=== PATIENT | male | born 1965 | race African-American/Black ===

== ENCOUNTER 2017-05-25 10:47 | Emergency (ER) | payer MEDICARE, BC ==
[~2017-05-25] VITALS: Ht 182.9 cm; Wt 99.8 kg
[~2017-05-25 10:47] MED LIST: AMLO5TAB2 PO; MYCO360T PO; TACR1CAP4 PO
[2017-05-25 11:04] VITALS: BP 144/97
--- NOTE | 2017-05-25 11:34 | PHYS DOC ---
Past Medical History Past Medical History: Hypertension, Renal Failure, Other Additional Past Medical Histor: Kidney transplant Past Surgical History: Other Additional Past Surgical Histo: Kidney transplant,Dialysis shunt (left forearm) Alcohol Use: Occasionally Drug Use: None Adult General Chief Complaint Chief Complaint: BACK PAIN OR INJURY [facility] HPI Patient is a 52 year old male presents to the emergency department stating that he has having lower back pain and discomfort. He states on Wednesday evening he was leaning over a car to inspect the engine work that someone had done for him when he went to stand up he started having severe pain and discomfort. Denies any loss of bowel or bladder. He denies any numbness or tingling down to his lower extremities. Patient also states that he's been having left knee pain and discomfort for the last week. He states that he had to climb up on a ladder to check the damage on any trauma when he came down the ladder he developed lateral knee pain. He denies any numbness or tingling down to his lower extremity. He is able to ambulate. Patient does state that he is a recipient of a kidney transplant and cannot take nonsteroidal anti- inflammatories. Patient states that he has not taken anything for pain or discomfort for his back or his knee. Review of Systems Review of Systems Constitutional: Denies fever or chills [] Eyes: Denies change in visual acuity, redness, or eye pain [] HENT: Denies nasal congestion or sore throat [] Respiratory: Denies cough or shortness of breath [] Cardiovascular: No additional information not addressed in HPI [] GI: Denies abdominal pain, nausea, vomiting, bloody stools or diarrhea [] : Denies dysuria or hematuria [] Musculoskeletal: Complaining of lower back pain, left knee pain and discomfort Integument: Denies rash or skin lesions [] Neurologic: Denies headache, focal weakness or sensory changes [] Endocrine: Denies polyuria or polydipsia [] Allergies Allergies Allergies Coded Allergies Type Severity Reaction Last Updated Verified No Known Drug Allergies 01/11/14 No Physical Exam Physical Exam Constitutional: Well developed, well nourished, no acute distress, non-toxic appearance. [] HENT: Normocephalic, atraumatic, bilateral external ears normal, oropharynx moist, no oral exudates, nose normal. [] Eyes: PERRLA, EOMI, conjunctiva normal, no discharge. [] Neck: Normal range of motion, no tenderness, supple, no stridor. [] Cardiovascular:Heart rate regular rhythm Lungs & Thorax: No respiratory distress noted Skin: Warm, dry, no erythema, no rash. [] Back: No tenderness Extremities: Lateral left knee tenderness, no cyanosis, no clubbing, ROM intact , no edema. No bruising or discoloration noted. Negative Marty, negative valgus, negative Garcia. Peripheral pulses 2+ cap refill brisk less than 2 seconds. Neurologic: Alert and oriented X 3, normal motor function, normal sensory function, no focal deficits noted. [] Psychologic: Affect normal, judgement normal, mood normal. [] Current Patient Data Vital Signs Vital Signs Date Time Temp Pulse Resp B/P (MAP) Pulse Ox O2 Delivery O2 Flow Rate FiO2 05/25/17 11:04 98.1 88 20 97 Room Air 98.1 EKG EKG [] Radiology/Procedures Radiology/Procedures [][facility] [address] [place], [place] [id number] IMAGING REPORT Signed PATIENT: EULALIO STOVER ACCOUNT: [id number] : 1965 LOCATION: ER AGE: 52 SEX: M EXAM STATUS: REG ER ORD. PHYSICIAN: CHRISTIANO HAMMOND APRN REASON: pain and discomfort to the anterior and lateral knee PROCEDURE: KNEE LEFT 4V INDICATION: pain and discomfort to the anterior and lateral knee COMPARISON: None. IMPRESSION: Left knee: 4 views obtained without evidence of dislocation. On the lateral view there is a possible lucency seen at one of the femoral condyles anteriorly. Cannot exclude a small osteochondral defect. Mild degenerative changes. DICTATED and SIGNED BY: EVERTON COULTER MD DATE: 05/25/17 1250 CC: CHRISTIANO HAMMOND APRN; NO PCP; NON,STAFF ~ Course & Med Decision Making Course & Med Decision Making Pertinent Labs and Imaging studies reviewed. (See chart for details) Patient's x-ray cannot exclude a small osteochondral defect, left knee. Patient will be discharged home with recommendations to use prednisone and Flexeril for pain and discomfort in his lower back area. Patient will be encouraged to follow -up with orthopedic in regards to the knee pain and discomfort. Patient was also instructed Flexeril will cause drowsiness do not take any be alert and oriented. Patient was encouraged to use ice packs on 20 minutes off 20 minutes several times today. Patient will be discharged home in stable condition signs symptoms to return back to emergency department has been provided. [] Dragon Disclaimer Dragon Disclaimer This electronic medical record was generated, in whole or in part, using a voice recognition dictation system. Departure Departure Impression: Primary Impression: Back pain Additional Impression: Left knee pain Disposition: HOME, SELF-CARE Condition: STABLE Referrals: NO PCP (PCP) KYLE RUFFIN MD Patient Instructions: Back Pain, Adult, Knee Pain, [id number] Additional Instructions: Your x-rays identified a possible small osteochondral defect. Medications as prescribed. Flexeril will cause drowsiness do not take any be alert and oriented. Ice packs on 20 minutes off 20 minutes several times a day. Follow-up with orthopedic within the next week. Return back to the emergency department for signs and symptoms of become worse. Scripts Prednisone (PREDNISONE) 20 Mg Tablet 40 MG PO DAILY, #14 TAB Prov: CHRISTIANO HAMMOND APRN 05/25/17 Cyclobenzaprine Hcl (CYCLOBENZAPRINE HCL) 10 Mg Tablet 10 MG PO TID, #30 TAB Prov: CHRISTIANO HAMMOND APRN 05/25/17 Problem Qualifiers CHRISTIANO HAMMOND APRN May 25, 2017 11:34
--- NOTE | 2017-05-25 12:55 | RAD ---
INDICATION: pain and discomfort to the anterior and lateral knee COMPARISON: None. IMPRESSION: Left knee: 4 views obtained without evidence of dislocation. On the lateral view there is a possible lucency seen at one of the femoral condyles anteriorly. Cannot exclude a small osteochondral defect. Mild degenerative changes.
[2017-05-25] MEDS ORDERED: PRED20TA PO (13:02)
[2017-05-25] MEDS ORDERED: CYCL10TA2 PO (13:02)
== END 2017-05-25 13:08 | disposition home or self-care (01) ==
LOC: ER 10:47
DX: M54.5 Low back pain (principal); M25.562 Pain in left knee; I12.9 Hypertensive chronic kidney disease with stage 1 through stage 4 chronic kidney disease, or unspecified chronic kidney disease; N18.9 Chronic kidney disease, unspecified; Z94.0 Kidney transplant status; Z99.2 Dependence on renal dialysis
CPT/HCPCS: 73564; 99284

== ENCOUNTER 2017-08-11 07:41 | Emergency (ER) | payer MEDICARE, BC ==
[~2017-08-11] VITALS: Ht 185.4 cm; Wt 97.1 kg
[~2017-08-11 07:41] MED LIST changes: +CYCL10TA2 PO; +PRED20TA PO
[2017-08-11] MEDS ORDERED: AMOX1TAB61 PO (08:03)
--- NOTE | 2017-08-11 08:03 | PHYS DOC ---
Past Medical History Past Medical History: Hypertension, Renal Failure, Other Additional Past Medical Histor: Kidney transplant Past Surgical History: Other Additional Past Surgical Histo: Kidney transplant,Dialysis shunt (left forearm) Alcohol Use: Occasionally Drug Use: None Adult General Chief Complaint Chief Complaint: FACE PROBLEM HPI HPI Patient is a 52 year old male with a history of a kidney transplant on prograph who presents to the ED complaining of left ear pain x 3 days. States he noticed some lymph node swelling also. History of ear problems and wants to get it taken care of before his flight in a few days. Associated symptoms include sore throat. Denies diffuse lymph node swelling, weight loss, fever, chest pain, shortness of breath, headache, vision changes or body aches. Followed by Dr. Jose. Review of Systems Review of Systems Constitutional: Denies fever or chills [] Eyes: Denies change in visual acuity, redness, or eye pain [] HENT: Complains of ear pain. Denies nasal congestion or sore throat [] Respiratory: Denies cough or shortness of breath [] Cardiovascular: No additional information not addressed in HPI [] GI: Denies abdominal pain, nausea, vomiting, bloody stools or diarrhea [] : Denies dysuria or hematuria [] Musculoskeletal: Denies back pain or joint pain [] Integument: Denies rash or skin lesions [] Neurologic: Denies headache, focal weakness or sensory changes [] Endocrine: Denies polyuria or polydipsia [] Allergies Allergies Allergies Coded Allergies Type Severity Reaction Last Updated Verified No Known Drug Allergies 01/11/14 No Physical Exam Physical Exam Constitutional: Well developed, well nourished, no acute distress, non-toxic appearance. [] HENT: Normocephalic, atraumatic, bilateral external ears normal, MILD LEFT TM ERYTHEMA. LOCAL LYMPH NODE SWELLING. oropharynx moist, no oral exudates, nose normal. [] Eyes: PERRLA, EOMI, conjunctiva normal, no discharge. [] Neck: Normal range of motion, no tenderness, supple, no stridor. [] Cardiovascular:Heart rate regular rhythm, no murmur [] Lungs & Thorax: Bilateral breath sounds clear to auscultation [] Abdomen: Bowel sounds normal, soft, no tenderness, no masses, no pulsatile masses. [] Skin: Warm, dry, no erythema, no rash. [] Back: No tenderness, no CVA tenderness. [] Extremities: No tenderness, no cyanosis, no clubbing, ROM intact, no edema. [] Neurologic: Alert and oriented X 3, normal motor function, normal sensory function, no focal deficits noted. [] Psychologic: Affect normal, judgement normal, mood normal. [] Current Patient Data Vital Signs Vital Signs Date Time Temp Pulse Resp B/P (MAP) Pulse Ox O2 Delivery O2 Flow Rate FiO2 08/11/17 08:06 97.6 79 18 98 Room Air 97.6 EKG EKG [] Radiology/Procedures Radiology/Procedures [] Course & Med Decision Making Course & Med Decision Making Pertinent Labs and Imaging studies reviewed. (See chart for details) []Will treat for infection with Augmentin. Discussed symptomatic treatment at home. Discussed follow-up with ENT if symptoms do not resolve in 7-10 days. Discussed reasons to return to the ED. Patient understands and agrees with plan. Dragon Disclaimer Dragon Disclaimer This electronic medical record was generated, in whole or in part, using a voice recognition dictation system. Departure Departure Impression: Primary Impression: Otitis media Disposition: HOME, SELF-CARE Condition: STABLE Referrals: NO PCP (PCP) LANCE JOSE MD Patient Instructions: Otitis Media, Adult Scripts Amoxicillin/Potassium Clav (AUGMENTIN 875-125 TABLET) 1 Each Tablet 1 TAB PO BID, #20 TAB Prov: LISA WILDE 08/11/17 LISA WILDE Aug 11, 2017 08:03
[2017-08-11 08:06] VITALS: BP 156/95
== END 2017-08-11 08:18 | disposition home or self-care (01) ==
LOC: ER 07:41
DX: H66.92 Otitis media, unspecified, left ear (principal); I12.9 Hypertensive chronic kidney disease with stage 1 through stage 4 chronic kidney disease, or unspecified chronic kidney disease; N18.9 Chronic kidney disease, unspecified; Z94.0 Kidney transplant status; Z99.2 Dependence on renal dialysis
CPT/HCPCS: 99283

== ENCOUNTER → 2018-03-11 | Outpatient (CLI) | payer OTHER, MEDICARE, BC | END | disposition home or self-care (01) | LOC: RAD 09:20 | DX: M43.17 Spondylolisthesis, lumbosacral region (principal); G89.29 Other chronic pain; I12.9 Hypertensive chronic kidney disease with stage 1 through stage 4 chronic kidney disease, or unspecified chronic kidney disease; N18.9 Chronic kidney disease, unspecified | CPT/HCPCS: 72100 ==

== ENCOUNTER 2018-09-23 09:41 | Emergency (ER) | payer MEDICARE, BC ==
[~2018-09-23] VITALS: Ht 182.9 cm; Wt 97.5 kg
[~2018-09-23 09:41] MED LIST changes: -AMLO5TAB2 PO; +AMLO5TAB7 PO; +AMOX1TAB61 PO; +CEPH-264 PO; +HYDR-2758 PO; +LINE600T PO; +MYCO180T PO
[2018-09-23 10:10] VITALS: BP 154/98
--- NOTE | 2018-09-23 10:25 | PHYS DOC ---
Past Medical History Past Medical History: Hypertension, Renal Disease Additional Past Medical Histor: esrd, Past Surgical History: Other Additional Past Surgical Histo: KIDNEY TRANSPLANT Alcohol Use: None Drug Use: None Adult General Chief Complaint Chief Complaint: RIB PAIN HPI HPI Patient is a 53 year old -British male who presents to the emergency room with complaints of lower left anterior rib pain for the last 5 days. He states that he coughed or sneezed last Wednesday and felt a sharp pain in his left anterior ribs. He denies any shortness of breath, chest pain, palpitations, injury, fever, nausea, or vomiting. Patient states that he has had a mild productive cough with clear to white sputum for about the last week. He denies having any fevers. States that he had a kidney transplant 8 years ago and denies any dysuria, hematuria, or decreased urination. Review of Systems Review of Systems Constitutional: Denies fever or chills [] HENT: Denies nasal congestion or sore throat [] Respiratory: History of present illness Cardiovascular: No additional information not addressed in HPI [] GI: Denies abdominal pain, nausea, vomiting, or diarrhea [] : Denies dysuria or hematuria [] Musculoskeletal: Denies back pain or joint pain [] Neurologic: Denies headache, focal weakness or sensory changes [] All other systems were reviewed and found to be within normal limits, except as documented in this note. Allergies Allergies Allergies Coded Allergies Type Severity Reaction Last Updated Verified No Known Drug Allergies 01/11/14 No Physical Exam Physical Exam Constitutional: Well developed, well nourished, no acute distress, non-toxic appearance. [] HENT: Normocephalic, atraumatic, bilateral external ears normal, nose normal. [ ] Eyes: PERRLA, conjunctiva normal, no discharge. [] Cardiovascular:Heart rate regular rhythm, no murmur [] Lungs & Thorax: Bilateral breath sounds clear to auscultation; lower left anterior rib tenderness to palpation no crepitus or deformity[] Skin: Warm, dry, no erythema, no rash. [] Extremities: No cyanosis, no clubbing, ROM intact, no edema. [] Neurologic: Alert and oriented X 3, normal motor function, normal sensory function, no focal deficits noted. [] Psychologic: Affect normal, judgement normal, mood normal. [] Current Patient Data Vital Signs Vital Signs Date Time Temp Pulse Resp B/P (MAP) Pulse Ox O2 Delivery O2 Flow Rate FiO2 09/23/18 10:10 98.2 89 16 154/98 (116) 98 Room Air 98.2 EKG EKG [] Radiology/Procedures Radiology/Procedures X-ray negative for acute fx or findings read by Dr. Perez[] Course & Med Decision Making Course & Med Decision Making Pertinent Labs and Imaging studies reviewed. (See chart for details) Dx: R rib pain/strain prescription for hydrocodone. Follow up with PCP next week if sx persist, return to the ER if sx worsen. Use a pillow to splint the area when coughing and sneezing. [] Dragon Disclaimer Dragon Disclaimer This electronic medical record was generated, in whole or in part, using a voice recognition dictation system. Departure Departure Impression: Primary Impression: Rib pain on right side Additional Impression: Contusion of rib on right side Disposition: HOME, SELF-CARE Condition: STABLE Referrals: NO PCP (PCP) Patient Instructions: Rib Contusion Additional Instructions: Use a pillow to splint the area when coughing and sneezing. Prescription and use as directed. Follow-up with your primary care doctor next week if your symptoms persist. Return to the emergency room if her symptoms worsen. Scripts Hydrocodone Bit/Acetaminophen (HYDROCODONE-APAP 5-325 ) 1 Each Tablet 1 TAB PO PRN Q6HRS PRN for PAIN for 3 Days, #12 TAB 0 Refills Prov: MOE ALMONTE [employer] MANAGER 09/23/18 Problem Qualifiers Additional Impression: Contusion of rib on right side Encounter type: initial encounter Qualified Codes: S20.211A - Contusion of right front wall of thorax, initial encounter MOE ALMONTE [employer] MANAGER Sep 23, 2018 10:25
[2018-09-23] MEDS ORDERED: HYDR-2758 PO (11:24)
--- NOTE | 2018-09-23 12:01 | RAD ---
Exam:Left ribs with PA chest Date: 09/23/2018 10:33 AM Comparison: No prior Indication: COUGH X 1 WEEK, LT ANTERIOR/LATERAL RIB PAIN X 3 DAYS, WORSE WITH COUGH, SNEEZING Findings/ Impression: The heart is not enlarged. Mediastinal and hilar contours are normal. No focal parenchymal airspace opacity. No pleural effusion or pneumothorax. AP, Oblique and Spot images of the left ribs are negative for acute displaced rib fracture. Negative focal pleural elevation. Symmetrical intercostal spacing. It is of note that an acute non-displaced rib fracture can be in-apparent on initial post-trauma imaging. Electronically signed by: Sinan Enamorado MD (09/23/2018 11:58 AM) [facility]
== END 2018-09-23 11:32 | disposition home or self-care (01) ==
LOC: ER 09:41
DX: S20.211A Contusion of right front wall of thorax, initial encounter (principal); I12.0 Hypertensive chronic kidney disease with stage 5 chronic kidney disease or end stage renal disease; N18.6 End stage renal disease; Z94.0 Kidney transplant status; X58.XXXA Exposure to other specified factors, initial encounter; Y93.89 Activity, other specified; Y92.89 Other specified places as the place of occurrence of the external cause; Y99.8 Other external cause status
CPT/HCPCS: 71101; 99284

== ENCOUNTER 2019-12-18 21:25 | Emergency (ER) | payer MEDICARE, BC ==
[~2019-12-18 21:25] MED LIST changes: +AMLO5TAB10 PO; -AMLO5TAB7 PO; -HYDR-2758 PO; +HYDR-2761 PO; -LINE600T PO; +LINE600T12 PO
== END 2019-12-18 22:38 | disposition left against medical advice (07) ==
LOC: ER 21:25
DX: R05 Cough (principal); R09.81 Nasal congestion; Z53.21 Procedure and treatment not carried out due to patient leaving prior to being seen by health care provider

== ENCOUNTER 2020-12-10 11:31 | Inpatient (IN) | payer MEDICARE, BC ==
[~2020-12-10] VITALS: Ht 182.9 cm; Wt 97.9 kg
[~2020-12-10 11:31] MED LIST changes: +AMLO-186 PO; -AMLO5TAB10 PO; +AMOX1TAB10 PO; -TACR1CAP4 PO; +TACR1CAP5 PO
[2020-12-10] MEDS ORDERED: methylPREDNISolone SOD SUCC PF 125 MG/2 ML VIAL. IV ONE (12:15)
--- NOTE | 2020-12-10 12:22 | PHYS DOC ---
Past Medical History Past Medical History: Hypertension, Renal Disease Additional Past Medical Histor: esrd, Past Surgical History: Other Additional Past Surgical Histo: KIDNEY TRANSPLANT Smoking Status: Never Smoker Alcohol Use: None Drug Use: None General Adult EDM: Chief Complaint: SHORTNESS OF BREATH HPI: HPI: Patient is a 55 year old male who presents with shortness of air and fatigue that is lasted for the last 2 to 3 weeks. On October 16 2019 he was diagnosed with pneumonia but he was Covid negative. The CT of his chest also showed pulmonary congestion and groundglass opacities. Patient states he can just be sitting there and be short of breath. Nothing makes it worse or better. States he is a generalized fatigue but the last couple days he has been forcing some food down them and states he is feeling little bit better. Patient denies syncope, dizziness, headache, chest pain, numbness or tingling, focal weakness, abdominal pain, nausea, vomiting, diarrhea, fever. He does have a history of CHF, hypertension, end-stage renal disease, kidney transplant. Review of Systems: Review of Systems: Constitutional: Denies fever or chills. [] Eyes: Denies change in visual acuity. [] HENT: Denies nasal congestion or sore throat. [] Respiratory: Denies cough. +shortness of breath. [] Cardiovascular: Denies chest pain or edema. [] GI: Denies abdominal pain, nausea, vomiting, bloody stools or diarrhea. +Lack of appetite [] : Denies dysuria. [] Musculoskeletal: Denies back pain or joint pain. +Generalized fatigue [] Integument: Denies rash. [] Neurologic: Denies headache, focal weakness or sensory changes. [] Endocrine: Denies polyuria or polydipsia. [] Lymphatic: Denies swollen glands. [] Psychiatric: Denies depression or anxiety. [] Heart Score: Risk Factors: Risk Factors: DM, Current or recent (<one month) smoker, HTN, HLP, family history of CAD, obesity. Risk Scores: Score 0 - 3: 2.5% MACE over next 6 weeks - Discharge Home Score 4 - 6: 20.3% MACE over next 6 weeks - Admit for Clinical Observation Score 7 - 10: 72.7% MACE over next 6 weeks - Early Invasive Strategies Current Medications: Current Medications Medications (Trade) Dose Ordered Sig/Manjinder Start Time Stop Time Status Last Admin Dose Admin Methylprednisolone Sodium Succinate (SOLU-Medrol 125MG VIAL) 125 mg 1X ONCE 12/10/20 12:15 12/10/20 12:16 Allergies: Allergies: Allergies Coded Allergies Type Severity Reaction Last Updated Verified No Known Drug Allergies 01/11/14 No Physical Exam: PE: Constitutional: Well developed, well nourished, no acute distress, non-toxic appearance. [] HENT: Normocephalic, atraumatic, bilateral external ears normal, oropharynx moist, no oral exudates, nose normal. [] Eyes: PERRLA, EOMI, conjunctiva normal, no discharge. [] Neck: Normal range of motion, no tenderness, supple, no stridor. [] Cardiovascular:Heart rate regular rhythm, no murmur [] Lungs & Thorax: Bilateral upper breath sounds clear and lower diminished to auscultation [] Abdomen: Bowel sounds normal, soft, no tenderness, no masses, no pulsatile masses. [] Skin: Warm, dry, no erythema, no rash. [] Back: No tenderness, no CVA tenderness. [] Extremities: No tenderness, no cyanosis, no clubbing, ROM intact, no edema. [] Neurologic: Alert and oriented X 3, normal motor function, normal sensory function, no focal deficits noted. [] Psychologic: Affect normal, judgement normal, mood normal. [] Current Patient Data: Vital Signs: Vital Signs Date Time Temp Pulse Resp B/P (MAP) Pulse Ox O2 Delivery O2 Flow Rate FiO2 12/10/20 12:00 98.1 92 25 133/85 (101) 98 Room Air 98.1 EKG: EK and read by Dr Perez as Sinus Rhythm with LVH[] Radiology/Procedures: Radiology/Procedures: [] Impression: [facility] [address] [place] [address] IMAGING REPORT Signed PATIENT: EULALIO STOVER MACCOUNT: [id number] : 1965 LOCATION: ER AGE: 55 SEX: M EXAM STATUS: REG ER ORD. PHYSICIAN: CHRISTIANO LIMON APRN REASON: SHORTNESS OF BREATH, PATIENT STATES HE HAD PNEUMONIA IN OCTOBER PROCEDURE: PORTABLE CHEST 1V XR CHEST 1V INDICATION: Reason: SHORTNESS OF BREATH, PATIENT STATES HE HAD PNEUMONIA IN OCTOBER / Spl. Instructions: / History: . COMPARISON STUDY: None. FINDINGS: Lungs: Normal lung volume. Mild bilateral perihilar opacities. The tracheobronchial tree and hilar structures are normal. Pleura: No pleural effusion or pneumothorax. Heart and Mediastinum: Cardiomegaly. The great vessels of the thorax are normal. IMPRESSION: Mild bilateral perihilar opacities, possibly edema or infection. Electronically signed by: Nohelia Collins MD (12/10/2020 1:07 PM) [facility] DICTATED and SIGNED BY: NOHELIA COLLINS MD DATE: 12/10/20 [id number] [id number] IMAGING REPORT Signed PATIENT: JOLANTAEULALIO MACCOUNT: [id number] : 1965 LOCATION: ER AGE: 55 SEX: M EXAM STATUS: REG ER ORD. PHYSICIAN: CHRISTIANO LIMON APRN REASON: SHORTNESS OF BREATH CONTINUED PROCEDURE: PULMONARY PERFUSION IMG PARTIC Indication: Reason: SHORTNESS OF BREATH CONTINUED / Spl. Instructions: / History: Technique: Static images are obtained of both lungs following IV administration of 5.5 mCi of 99 M technetium MAA. Comparison: Chest x-ray from same day Findings: Patchy perfusion defects are seen. Can not assess whether this is matched or mismatched given the lack of ventilation images. Impression: 1. Mild patchy perfusion defects bilaterally. Cannot assess whether these are matched or mismatched secondary to lack of ventilation images however overall the exam is on the border between low and intermediate probability. Electronically signed by: Everton Coulter MD (12/10/2020 4:03 PM) [id number] DICTATED and SIGNED BY: EVERTON COULTER MD DATE: 12/10/20 [id number] [place], [place] [id number] IMAGING REPORT Signed PATIENT: EULALIO STOVER MACCOUNT: [id number] : 1965 LOCATION: ER AGE: 55 SEX: M EXAM STATUS: REG ER ORD. PHYSICIAN: CHRISTIANO LIMON APRN REASON: shortness of breath PROCEDURE: CT CHEST WO CONTRAST Exam: CT of chest without contrast INDICATION: Shortness of breath TECHNIQUE: Sequential axial images through the chest obtained without IV contrast. Sagittal and coronal reformatted images were reconstructed from the axial data and reviewed. Comparisons: Chest x-ray same day FINDINGS: Visualized portions of the thyroid are unremarkable. No enlarged mediastinal lymph nodes. Heart size is at the upper limits of normal. There is a small pericardial effusion. Thoracic aorta has a normal course and caliber. Pulmonary artery is not enlarged. Airways are patent. There is patchy areas of groundglass opacity noted in the lungs bilaterally. No consolidation or pneumothorax. No suspicious lung nodules are identified. There is a trace right pleural effusion. Visualized upper abdomen is unremarkable. No suspicious osseous lesions or acute fractures. IMPRESSION: 1. Extensive groundglass opacities noted lungs bilaterally favored to be infectious or inflammatory in etiology. 2. Trace right pleural effusion. Exposure: One or more of the following in the visualized dose reduction techniques were utilized for this examination: 1. Automated exposure control 2. Adjustment of the MA and/or KV according to patient size 3. Use of iterative of reconstructive technique Electronically signed by: Adelaida Gardiner MD (12/10/2020 4:11 PM) [facility] DICTATED and SIGNED BY: ADELAIDA GARDINER MD DATE: 12/10/20 [id number] Course & Med Decision Making: Course & Med Decision Making Pertinent Labs and Imaging studies reviewed. (See chart for details) COVID-19 CRITERIA: The patient was evaluated during the global COVID-19 pandemic, and that diagnosis was suspected/considered upon their initial presentation. Their evaluation, treatment and testing was consistent with current guidelines for patients who present with complaints or symptoms that may be related to COVID-19. See HPI. Alert and oriented x4. Speaks in full short sentences as he is sounding short of breath as he speaks. Lungs are clear in upper lobes with diminished in lower lobes. He is 97% on room air. Ambulatory with a steady gait. No extremity swelling. Skin pink warm and dry. Patient's troponin has gone back up since he left. Patient's echo cardiogram was never done prior to discharge. Patient's stated"since he did not have Covid that it was not of importance." Patient states he was then scheduled in November and then they called in November and rescheduled him for December. I have retested the patient for Covid. I have given him azithromycin. [] Dariel Disclaimer: Dragmandy Disclaimer: This electronic medical record was generated, in whole or in part, using a voice recognition dictation system. COVID-19 Patient Risks: Age 65 or older: No Sign of co-morbidity: Yes Exp to person + for COVID: No Exp to PUI: No Travel from affected area: No Lower respiratory symptoms: Yes Fever: No Other: No PPE Use: Full PPE with N95 mask or PAPR: Yes Departure Departure Impression: Primary Impression: Pneumonia Qualified Codes: J18.9 - Pneumonia, unspecified organism Additional Impression: Person under investigation for COVID-19 Disposition: 09 ADMITTED INPT THIS HOSP Admitting Physician: Megan Soria Condition: STABLE Referrals: MEGAN SORIA MD (PCP) CHRISTIANO LIMON APRN Dec 10, 2020 12:22
--- NOTE | 2020-12-10 12:34 | EKG ---
[facility] [address] [place] [address] Test Date: 2020-12-10 Test Time: 12:29:07 Pat Name: EULALIO STOVER Department: Room: Gender: Quality Process Engineer: : [id number] Requested By: CHRISTIANO LIMON Order Number: [id number] Reading MD: Donte Tovar Measurements Intervals Wood Rate: 88 P: 49 OK: 188 QRS: -39 QRSD: 100 T: 104 QT: 364 QTc: 444 Interpretive Statements SINUS RHYTHM LEFT ATRIAL ABNORMALITY ABNORMAL LEFT AXIS DEVIATION LEFT ANTERIOR FASCICULAR BLOCK CONSIDER LEFT VENTRICULAR HYPERTROPHY T ABNORMALITY IN LATERAL LEADS ABNORMAL ECG Electronically Signed On 12-17-2020 10:13:22 TRIPE SCRAPER by Donte Tovar
[2020-12-10 12:47] LABS: BASO % 0 % (0-3); EOS # 0.4 x10^3/uL (0.0-0.7); EOS % 7 % (0-3); HEMOGLOBIN 11.9 g/dL (13.0-17.5); LYMPH # 1.2 x10^3/uL (1.0-4.8); LYMPH % 20 % (24-48); MEAN CORPUSCULAR HEMOGLOBIN 24 pg (25-35); MEAN CORPUSCULAR HGB CONC 32 g/dL (31-37); MEAN CORPUSCULAR VOLUME 76 fL (79-100); MONO # 0.5 x10^3/uL (0.0-1.1); MONO % 9 % (0-9); NEUT # 3.8 x10^3/uL (1.8-7.7); NEUT % 64 % (31-73); PLATELET COUNT 329 x10^3/uL (140-400); RED BLOOD COUNT 4.87 x10^6/uL (4.30-5.70); RED CELL DISTRIBUTION WIDTH 18.9 % (11.5-14.5); WHITE BLOOD COUNT 5.9 x10^3/uL (4.0-11.0)
--- NOTE | 2020-12-10 13:09 | RAD ---
XR CHEST 1V INDICATION: Reason: SHORTNESS OF BREATH, PATIENT STATES HE HAD PNEUMONIA IN OCTOBER / . Instructi ons: / History: . COMPARISON STUDY: None. FINDINGS: Lungs: Normal lung volume. Mild bilateral perihilar opacities. The tracheobronchial tree and hilar st ructures are normal. Pleura: No pleural effusion or pneumothorax. Heart and Mediastinum: Cardiomegaly. The great vessels of the thorax are normal. IMPRESSION: Mild bilateral perihilar opacities, possibly edema or infection. Electronically signed by: Tony Collins MD (12/10/2020 1:07 PM) [facility]
[2020-12-10 13:18] LABS: ALBUMIN 2.8 g/dL (3.4-5.0); ALBUMIN/GLOBULIN RATIO 0.6 (1.0-1.7); CREATININE 2.4 mg/dL (0.7-1.3); GFR 34.3; TOTAL BILIRUBIN 0.5 mg/dL (0.2-1.0); TOTAL PROTEIN 7.4 g/dL (6.4-8.2)
[2020-12-10 14:43] LABS: BASE EXCESS COOX -5 mmol/L (-3-3); HCO3 COOX 18 mmol/L (21-28); METHEMOGLOBIN 0.4 % (0.0-1.9); OXYHEMOGLOBIN 95.7 %; PCO2 COOX 27 mmHg (35-46); PO2 COOX 83 mmHg (75-108); SAT O2 COOX 97 % (92-99)
[2020-12-10 15:13] LABS: BILIRUBIN,URINE NEGATIVE (NEG); CLARITY,URINE CLEAR; COLOR,URINE YELLOW; NITRITE,URINE NEGATIVE (NEG); PH,URINE 5.5 (<5.0-8.0); PROTEIN,URINE >=300 mg/dL (NEG-TRACE); UROBILINOGEN,URINE 0.2 mg/dL (0.2 mg/dL)
[2020-12-10 15:23] LABS: BACTERIA,URINE FEW /HPF (0-FEW); WBC,URINE RARE /HPF (0-4)
[2020-12-10] MEDS ORDERED: AZITHRMYCN 500MG IVPB FOR OMNI 250 ML IV ONE (15:45)
[2020-12-10] MEDS ORDERED: IPRATRPIUM/ALBUTEROL 0.5/2.5MG 3 ML NEBU. NEB SCH (16:00)
--- NOTE | 2020-12-10 16:05 | RAD ---
Indication: Reason: SHORTNESS OF BREATH CONTINUED / Spl. Instructions: / History: Technique: Static images are obtained of both lungs following IV administration of 5.5 mCi of 99 M te chnetium MAA. Comparison: Chest x-ray from same day Findings: Patchy perfusion defects are seen. Can not assess whether this is matched or mismatched given the lack of ventilation images. Impression: 1. Mild patchy perfusion defects bilaterally. Cannot assess whether these are matched or mismatched s econdary to lack of ventilation images however overall the exam is on the border between low and inte rmediate probability. Electronically signed by: Jonathan Mcmanus MD (12/10/2020 4:03 PM) [id number]
--- NOTE | 2020-12-10 16:13 | RAD ---
Exam: CT of chest without contrast INDICATION: Shortness of breath TECHNIQUE: Sequential axial images through the chest obtained without IV contrast. Sagittal and coron al reformatted images were reconstructed from the axial data and reviewed. Comparisons: Chest x-ray same day FINDINGS: Visualized portions of the thyroid are unremarkable. No enlarged mediastinal lymph nodes. Heart size is at the upper limits of normal. There is a small pericardial effusion. Thoracic aorta cherry s a normal course and caliber. Pulmonary artery is not enlarged. Airways are patent. There is patchy areas of groundglass opacity noted in the lungs bilaterally. No c onsolidation or pneumothorax. No suspicious lung nodules are identified. There is a trace right pleural effusion. Visualized upper abdomen is unremarkable. No suspicious osseous lesions or acute fractures. IMPRESSION: 1. Extensive groundglass opacities noted lungs bilaterally favored to be infectious or inflammatory in etiology. 2. Trace right pleural effusion. Exposure: One or more of the following in the visualized dose reduction techniques were utilized for this examination: 1. Automated exposure control 2. Adjustment of the MA and/or KV according to patient size 3. Use of iterative of reconstructive technique Electronically signed by: Adelaida Kuhn MD (12/10/2020 4:11 PM) [facility]
[2020-12-10] MEDS: IPRATROPIUM/ALBUTEROL 20/100mcg/INH INHALER. INH SCH ×2 (18:00→20:00)
[2020-12-10 19:00] VITALS: BP 139/87
[2020-12-10 23:00] VITALS: BP 136/90
[2020-12-11 03:00] VITALS: BP 133/87
[2020-12-11] MEDS ORDERED: GUAI600T47 PO (04:49)
[2020-12-11 07:00] VITALS: BP 128/91
[2020-12-11] MEDS: IPRATROPIUM/ALBUTEROL 20/100mcg/INH INHALER. INH SCH ×4 (07:56→20:55)
--- NOTE | 2020-12-11 09:26 | PDOC ---
Provider Note Date of Service: DATE: 12/11/20 TIME: 09:25 Provider Note Pt seen .H&P dictated.#[id number]. Justifications for Admission Other Justification DANNY SORIA MD Dec 11, 2020 09:26
[2020-12-11] MEDS: ENOXAPARIN 40 MG/0.4 ML SYRINGE. SQ SCH (09:30)
--- NOTE | 2020-12-11 09:59 | HP ---
ADMIT DATE: 12/10/2020 LOCATION: [facility] REASON FOR ADMISSION TO THE HOSPITAL: Shortness of breath, infiltrates in the lung on CT scan. HISTORY OF PRESENT ILLNESS: The patient is a 55-year-old male with history of kidney transplant and he is on immunosuppressants. The patient was admitted to the hospital on 10/17 for shortness of breath, at the time, he had exposure to COVID and the patient had a CT chest, which shows infiltrates in the lung, COVID test was negative. At that time, the patient was seen by Pulmonary as well as Cardiology. His infiltrates in the lung improved with Lasix and it was felt that it maybe congestive heart failure. The patient was recommended to outpatient echocardiogram, but he did not have that done. In the meantime, he was still having lot of cough with shortness of breath. The patient came to the Emergency Room and his white count was normal, no fever but x-ray shows persistent infiltrates in the lung. V/Q scan was low probability for pulmonary embolism. The patient was admitted to the hospital for further investigation and treatment. Cardiology is consulted, pulmonary is consulted and the patient was given empirical treatment with Zithromax and also given Lovenox dose and Solu-Medrol. He has only clear sputum, only is short of breath, he is not up to usual self. PAST MEDICAL HISTORY: History of hypertension, kidney transplant. He was on dialysis in the past, but with the kidney transplant, he is on immunosuppressants. He has chronic kidney disease, creatinine 2.5. SURGICAL HISTORY: Kidney transplant. ALLERGIES: None. MEDICATIONS AT HOME: Amlodipine 10 mg daily, Myfortic 360 mg twice a day and 180 mg twice daily; Prograf 5 mg twice a day. PERSONAL HISTORY: Denies smoking, alcohol or drug abuse. SOCIAL HISTORY: Lives at home. FAMILY HISTORY: Hypertension, kidney problems. REVIEW OF SYMPTOMS: Complains of cough, feeling tired. Denies any fever or chills. Denies any yellow green sputum. Rest of the 14 systems was reviewed and negative. Denies any ankle swelling. PHYSICAL EXAMINATION: GENERAL: The patient is comfortable, sitting in chair, not in any distress. VITAL SIGNS: Temperature 98, pulse 88, respirations 30, blood pressure 131/85, 100% on room air. HEENT: Head is atraumatic. Pupils equal. Oral cavity: No congestion. NECK: Supple. Thyroid gland is not elevated. CHEST: Symmetrical. CARDIOVASCULAR: S1, S2. LUNGS: Clear to auscultation. No crackles. ABDOMEN: Soft, no mass palpable. EXTERNAL GENITALIA: No Ariza. RECTAL: Deferred. EXTREMITIES: No calf tenderness, no edema. The patient has an old AV graft in the left arm and the patient has a scar in the right lower abdomen from kidney transplant. NEUROLOGIC: No focal edema in the lower extremities. LABORATORY DATA: White count 6, hemoglobin 12, platelets 329. D-dimer 0.95, slightly elevated. Electrolytes show sodium 136, potassium 4.0, chloride 104, bicarbonate 23, BUN 28, creatinine 2.4, his baseline. Glucose 115, calcium 11. LFTs normal. Troponin negative 0.04. BNP 1900. Urine negative. Chest x-ray shows mild bilateral perihilar opacities and a CT chest, which shows, without contrast, extensive ground glass opacities bilaterally, trace right pleural effusion and V/Q scan is low probability for pulmonary embolism. FINAL IMPRESSION: 1. Persistent lung infiltrates possibility late effects of previous pneumonia. 2. Rule out heart failure. 3. Hypertension. 4. History of kidney transplant, on immunosuppressants. 5. History of dialysis with AV graft in the past. PLAN: At this time, the patient was admitted to the hospital, COVID test was pending and will have Pulmonary Critical Care see the patient, echocardiogram while he is in the hospital this time and also we will empirically treat with Zithromax, Solu-Medrol and Lovenox until cultures are available. DANNY SORIA MD DR: SILVIA/alicia JOB#: [id number] / [id number] AUGUSTO
[2020-12-11] MEDS ORDERED: MYCOPHENOLATE ACID 180 MG TABLET.DR. PO SCH (10:00)
[2020-12-11] MEDS: MYCOPHENOLATE ACID 180 MG TABLET.DR. PO SCH ×3 (10:02→21:05)
[2020-12-11] MEDS: methylPREDNISolone SOD SUCC PF 40 MG/ML VIAL. IV SCH ×2 (10:02→20:55)
[2020-12-11] MEDS: AZITHROMYCIN 250 MG in IV NORMAL SALINE 250ML 250 ML IV SCH (10:04)
[2020-12-11 11:00] VITALS: BP 131/93
[2020-12-11] MEDS: TACROLIMUS 0.5 MG CAPSULE. PO SCH ×2 (11:23→21:07)
--- NOTE | 2020-12-11 11:50 | PDOC ---
PULMONARY PROGRESS NOTES DATE: 12/11/20 TIME: 11:48 Vitals Vital Signs Date Time Temp Pulse Resp B/P (MAP) Pulse Ox O2 Delivery O2 Flow Rate FiO2 12/11/20 11:00 97.7 96 18 131/93 (106) 96 Room Air 97.7 General: Alert, Oriented X4 Lungs: Crackles Cardiovascular: S1, S2 Abdomen: Non-tender Extremities: No Edema Labs Laboratory Tests Test 12/10/20 12:33 12/10/20 12:34 12/10/20 14:30 12/10/20 15:07 Coronavirus (PCR) Not detected (Not Detected) White Blood Count 5.9 x10^3/uL (4.0-11.0) Red Blood Count 4.87 x10^6/uL (4.30-5.70) Hemoglobin 11.9 g/dL (13.0-17.5) Hematocrit 37.0 % (39.0-53.0) Mean Corpuscular Volume 76 fL (79-100) Mean Corpuscular Hemoglobin 24 pg (25-35) Mean Corpuscular Hemoglobin Concent 32 g/dL (31-37) Red Cell Distribution Width 18.9 % (11.5-14.5) Platelet Count 329 x10^3/uL (140-400) Neutrophils (%) (Auto) 64 % (31-73) Lymphocytes (%) (Auto) 20 % (24-48) Monocytes (%) (Auto) 9 % (0-9) Eosinophils (%) (Auto) 7 % (0-3) Basophils (%) (Auto) 0 % (0-3) Neutrophils # (Auto) 3.8 x10^3/uL (1.8-7.7) Lymphocytes # (Auto) 1.2 x10^3/uL (1.0-4.8) Monocytes # (Auto) 0.5 x10^3/uL (0.0-1.1) Eosinophils # (Auto) 0.4 x10^3/uL (0.0-0.7) Basophils # (Auto) 0.0 x10^3/uL (0.0-0.2) D-Dimer (Radha) 0.95 ug/mlFEU (0.00-0.50) Sodium Level 136 mmol/L (136-145) Potassium Level 4.0 mmol/L (3.5-5.1) Chloride Level 104 mmol/L (98-107) Carbon Dioxide Level 23 mmol/L (21-32) Anion Gap 9 (6-14) Blood Urea Nitrogen 28 mg/dL (8-26) Creatinine 2.4 mg/dL (0.7-1.3) Estimated GFR (Cockcroft-Gault) 34.3 BUN/Creatinine Ratio 12 (6-20) Glucose Level 115 mg/dL (70-99) Lactic Acid Level 0.8 mmol/L (0.4-2.0) Calcium Level 11.0 mg/dL (8.5-10.1) Total Bilirubin 0.5 mg/dL (0.2-1.0) Aspartate Amino Transf (AST/SGOT) 11 U/L (15-37) Alanine Aminotransferase (ALT/SGPT) 18 U/L (16-63) Alkaline Phosphatase 102 U/L (46-116) Troponin I Quantitative 0.040 ng/mL (0.000-0.055) RC-Bnq-V-Type Natriuretic Peptide 1909 pg/mL (0-124) Total Protein 7.4 g/dL (6.4-8.2) Albumin 2.8 g/dL (3.4-5.0) Albumin/Globulin Ratio 0.6 (1.0-1.7) O2 Saturation 97 % (92-99) Arterial Blood pH 7.44 (7.35-7.45) Arterial Blood pCO2 at Patient Temp 27 mmHg (35-46) Arterial Blood pO2 at Patient Temp 83 mmHg (75-108) Arterial Blood HCO3 18 mmol/L (21-28) Arterial Blood Base Excess -5 mmol/L (-3-3) Oxyhemoglobin 95.7 % Methemoglobin 0.4 % (0.0-1.9) Carbon Monoxide, Quantitative 0.5 % (0.0-1.9) FiO2 21 Urine Collection Type Unknown Urine Color Yellow Urine Clarity Clear Urine pH 5.5 (<5.0-8.0) Urine Specific Elmore 1.015 (1.000-1.030) Urine Protein >=300 mg/dL (NEG-TRACE) Urine Glucose (UA) Negative mg/dL (NEG) Urine Ketones (Stick) Negative mg/dL (NEG) Urine Blood Trace (NEG) Urine Nitrite Negative (NEG) Urine Bilirubin Negative (NEG) Urine Urobilinogen Dipstick 0.2 mg/dL (0.2 mg/dL) Urine Leukocyte Esterase Negative (NEG) Urine RBC 3-5 /HPF (0-2) Urine WBC Rare /HPF (0-4) Urine Squamous Epithelial Cells Occ /LPF Urine Bacteria Few /HPF (0-FEW) Laboratory Tests Test 12/10/20 12:33 12/10/20 12:34 12/10/20 14:30 12/10/20 15:07 Coronavirus (PCR) Not detected (Not Detected) White Blood Count 5.9 x10^3/uL (4.0-11.0) Red Blood Count 4.87 x10^6/uL (4.30-5.70) Hemoglobin 11.9 g/dL (13.0-17.5) Hematocrit 37.0 % (39.0-53.0) Mean Corpuscular Volume 76 fL (79-100) Mean Corpuscular Hemoglobin 24 pg (25-35) Mean Corpuscular Hemoglobin Concent 32 g/dL (31-37) Red Cell Distribution Width 18.9 % (11.5-14.5) Platelet Count 329 x10^3/uL (140-400) Neutrophils (%) (Auto) 64 % (31-73) Lymphocytes (%) (Auto) 20 % (24-48) Monocytes (%) (Auto) 9 % (0-9) Eosinophils (%) (Auto) 7 % (0-3) Basophils (%) (Auto) 0 % (0-3) Neutrophils # (Auto) 3.8 x10^3/uL (1.8-7.7) Lymphocytes # (Auto) 1.2 x10^3/uL (1.0-4.8) Monocytes # (Auto) 0.5 x10^3/uL (0.0-1.1) Eosinophils # (Auto) 0.4 x10^3/uL (0.0-0.7) Basophils # (Auto) 0.0 x10^3/uL (0.0-0.2) D-Dimer (Radha) 0.95 ug/mlFEU (0.00-0.50) Sodium Level 136 mmol/L (136-145) Potassium Level 4.0 mmol/L (3.5-5.1) Chloride Level 104 mmol/L (98-107) Carbon Dioxide Level 23 mmol/L (21-32) Anion Gap 9 (6-14) Blood Urea Nitrogen 28 mg/dL (8-26) Creatinine 2.4 mg/dL (0.7-1.3) Estimated GFR (Cockcroft-Gault) 34.3 BUN/Creatinine Ratio 12 (6-20) Glucose Level 115 mg/dL (70-99) Lactic Acid Level 0.8 mmol/L (0.4-2.0) Calcium Level 11.0 mg/dL (8.5-10.1) Total Bilirubin 0.5 mg/dL (0.2-1.0) Aspartate Amino Transf (AST/SGOT) 11 U/L (15-37) Alanine Aminotransferase (ALT/SGPT) 18 U/L (16-63) Alkaline Phosphatase 102 U/L (46-116) Troponin I Quantitative 0.040 ng/mL (0.000-0.055) AU-Nox-Y-Type Natriuretic Peptide 1909 pg/mL (0-124) Total Protein 7.4 g/dL (6.4-8.2) Albumin 2.8 g/dL (3.4-5.0) Albumin/Globulin Ratio 0.6 (1.0-1.7) O2 Saturation 97 % (92-99) Arterial Blood pH 7.44 (7.35-7.45) Arterial Blood pCO2 at Patient Temp 27 mmHg (35-46) Arterial Blood pO2 at Patient Temp 83 mmHg (75-108) Arterial Blood HCO3 18 mmol/L (21-28) Arterial Blood Base Excess -5 mmol/L (-3-3) Oxyhemoglobin 95.7 % Methemoglobin 0.4 % (0.0-1.9) Carbon Monoxide, Quantitative 0.5 % (0.0-1.9) FiO2 21 Urine Collection Type Unknown Urine Color Yellow Urine Clarity Clear Urine pH 5.5 (<5.0-8.0) Urine Specific Elmore 1.015 (1.000-1.030) Urine Protein >=300 mg/dL (NEG-TRACE) Urine Glucose (UA) Negative mg/dL (NEG) Urine Ketones (Stick) Negative mg/dL (NEG) Urine Blood Trace (NEG) Urine Nitrite Negative (NEG) Urine Bilirubin Negative (NEG) Urine Urobilinogen Dipstick 0.2 mg/dL (0.2 mg/dL) Urine Leukocyte Esterase Negative (NEG) Urine RBC 3-5 /HPF (0-2) Urine WBC Rare /HPF (0-4) Urine Squamous Epithelial Cells Occ /LPF Urine Bacteria Few /HPF (0-FEW) Medications Active Scripts Medications Dose Route/Sig Max Daily Dose Days Date Category Mucinex (Guaifenesin) 600 Mg Tablet.er 1 Tab PO BID 10 12/11/20 Reported Myfortic (Mycophenolate Sodium) 180 Mg Tablet.dr 180 Mg PO BID 07/26/18 Reported Prograf (Tacrolimus) 1 Mg Capsule 5 Mg PO BID 05/03/14 Reported Myfortic (Mycophenolate Sodium) 360 Mg Tablet.dr 360 Mg PO BID 05/03/14 Reported Amlodipine Besylate 5 Mg Tablet 10 Mg PO DAILY 01/11/14 Reported Impression . Full consult dictated CT chest reviewed, with radiologist. Differential diagnosis includes a hypersensitivity pneumonitis, alveolitis, possible infectious viral etiology. Doubt CHF. Patient gives a history of being exposed to ceramic dust, wood dust. His SARS Covid 2 is negative. Recommend treatment for hypersensitivity pneumonitis with steroids, empiric antibiotics, await echocardiogram. Possible home in 24 to 48 hours. ARELY SZYMANSKI MD Dec 11, 2020 11:50
[2020-12-11 12:26] LABS: PROTHROMBIN TIME PATIENT 14.9 SEC (11.7-14.0)
[2020-12-11 12:31] LABS: CALCIUM 11.4 mg/dL (8.5-10.1); CREATININE 2.7 mg/dL (0.7-1.3); GFR 29.9; MAGNESIUM 1.7 mg/dL (1.8-2.4); POTASSIUM 4.5 mmol/L (3.5-5.1)
--- NOTE | 2020-12-11 13:55 | CONS ---
DATE OF CONSULTATION: 12/11/2020 ATTENDING PHYSICIAN: Dr. James. HISTORY OF PRESENT ILLNESS: The patient is a 55-year-old -[place] male with a history of renal failure, status post kidney transplant. He is currently on immunosuppressive agents. He is on combination of tacrolimus and mycophenolate. The patient presented because over the last week or so he was having increasing difficulty with shortness of breath mainly with exertion, weakness, some wheezing, coughing up some sputum. Over the last 24 hours, he is improved but then he was having some increasing difficulty presented to the Emergency Room, he was admitted. He underwent a CT chest with no contrast as a result of his renal failure. There is extensive ground glass opacities bilaterally. These appear to be different than his previous scan of the chest. I was asked to see him in consultation. Upon further questioning, the patient denies fever, body aches. No loss of taste or smell. He has never smoked. He does not have any pets at home. No bird. He did admit to having worked on his house. He did have some sheetrocking, sanding down sheetrock. He has also worked around some wood with wood dust. PAST MEDICAL HISTORY: Renal failure secondary to hypertension, status post kidney transplant. He is on immunosuppressive agents. Otherwise, he has never smoked. No other significant history. PAST SURGICAL HISTORY: Status post kidney transplant. ALLERGIES: No known drug allergies. MEDICATIONS: List from home was reviewed. SOCIAL HISTORY: Never smoked. Lives with his girlfriend. FAMILY HISTORY: Hypertension. REVIEW OF SYSTEMS: As indicated in the history of present illness. Otherwise, a 10-point system was reviewed and negative. PHYSICAL EXAMINATION: VITAL SIGNS: Since admission, he has been afebrile. Vital signs are stable. O2 saturation was greater than 92%. He is currently on room air. NECK: Jugular venous distention was not elevated. LUNGS: Adequate flow with no wheezes, rales or rhonchi. CARDIOVASCULAR: Regular rate and rhythm with S1, S2; no S3. ABDOMEN: Soft, nontender. EXTREMITIES: No clubbing, cyanosis or edema. LABORATORY DATA: Labs on room air: His PaO2 was 83, pH was 7.4, PaCO2 was 27. Sodium was normal. He had a lymphocytopenia. D-dimer was elevated. Electrolytes were noted. Serology for SARS-COVID 2 was negative. V/Q scan reviewed, low probability, clinical suspicion for PE is low. IMPRESSION: 1. Abnormal CT chest revealing ground glass opacities throughout both lung aguilar. 2. QLQO-TRRGH-0 negative on 12/10/2020 also negative back on 10/17/2020. 3. Renal failure secondary to hypertension, status post kidney transplant. 4. Kidney transplant. 5. Acute nonspecific bronchitis. 6. Possible acute alveolitis from inhalation of wood dust and sheetrock dust. PLAN: 1. The patient is to undergo an echocardiogram today, we will await echo results. 2. DRTP-PHVFT-1 negative. 3. Empiric steroids. 4. We will empirically treat with antibiotics for possible bacterial pneumonia. 5. Continue DVT prophylaxis. 7. P.r.n. nebulized treatments. I do appreciate the privilege in sharing in the patient's care. ARELY SZYMANSKI MD DR: BUSHRA/alicia JOB#: [id number] / [id number]
[2020-12-11 15:00] VITALS: BP 122/89
[2020-12-11] MEDS ORDERED: MAGNESIUM SULFATE 2GM 50 ML IV ONE (15:45)
--- NOTE | 2020-12-11 15:57 | PDOC2 ---
AMITA BRANCH HEAD GOLF PROFESSIONAL 12/11/20 1557: CARDIAC CONSULT DATE OF CONSULT Date of Consult DATE: 12/11/20 TIME: 1300 REASON FOR CONSULT Reason for Consult: CHF? REFERRING PHYSICIAN Referring Physician: Erika SOURCE Source: Chart review, Patient HISTORY OF PRESENT ILLNESS HISTORY OF PRESENT ILLNESS This is a pleasant 55 yo male admitted for complains of coughing. Reports that he was treated for CHF in 10/2020 with suspected pneumonia. He did not have covid-19 at that time. Reports that in the last 7-10 days he has been having productive cough with brown sputum. Positive for orthopnea at some point. No fever or chills. He had some SOA at that time and also some leg swelling which has improved. Reports that in the last 2 days his SOA is resolved and still has mild productive sputum but with shite sputum. He actually lost about 10 pounds in the last 2 months. Denies any chest pain, palpitations. No anosmia, ageusia. Denies any frequent dizziness. PAST MEDICAL HISTORY Cardiovascular: HTN Pulmonary: Pneumonia CENTRAL NERVOUS SYSTEM: Other (No pertinent history) GI: No pertinent hx Heme/Onc: Anemia NOS, Other (chronic immunosuppression) Psych: No pertinent hx Musculoskeletal: Osteoarthritis Rheumatologic: No pertinent hx Infectious disease: No pertinent hx ENT: No pertinent hx Renal/: Chronic renal failure, Other (renal transplant) Endocrine: No pertinent hx Dermatology: No pertinent hx PAST SURGICAL HISTORY Past Surgical History: Other (renal transplant) FAMILY HISTORY Family History noncontributory to CV SOCIAL HISTORY Smoke: No ALCOHOL: none Drugs: None Lives: with Family CURRENT MEDICATIONS CURRENT MEDICATIONS Current Medications Medications (Trade) Dose Ordered Sig/Manjinder Route PRN Reason Start Time Stop Time Status Last Admin Dose Admin Azithromycin 250 ml @ 250 mls/hr 1X ONCE IV 12/10/20 15:45 12/10/20 16:44 DC 12/10/20 15:56 Enoxaparin Sodium (Lovenox 100mg Syringe) 100 mg 1X ONCE SQ 12/10/20 17:15 12/10/20 17:16 DC 12/10/20 17:25 Albuterol/ Ipratropium (Combivent Respimat 20-100 Mcg) 1 puff RTQID INH 12/10/20 18:00 12/11/20 12:10 Amlodipine Besylate (Norvasc) 10 mg DAILY PO 12/11/20 10:00 12/11/20 10:02 Guaifenesin (Mucinex) 600 mg BID PO 12/11/20 10:00 12/11/20 10:02 Mycophenolate Sodium (Myfortic) 540 mg BID PO 12/11/20 10:00 12/11/20 10:02 Tacrolimus (Prograf) 5 mg BID PO 12/11/20 10:00 12/11/20 11:23 Azithromycin 250 mg/Sodium Chloride 250 ml @ 250 mls/hr Q24H IV 12/11/20 10:00 12/11/20 10:04 Methylprednisolone Sodium Succinate (SOLU-Medrol 40MG VIAL) 40 mg Q12HR IV 12/11/20 10:00 12/11/20 10:02 ALLERGIES ALLERGIES: Coded Allergies: No Known Drug Allergies (Unverified , 01/11/14) PHYSICAL EXAM General: Alert, Oriented X3, Cooperative, No acute distress HEENT: Atraumatic, Mucous membr. moist/pink Lungs: Other (diminished bases) Heart: Regular rate (SR) Abdomen: Soft, No tenderness Extremities: No cyanosis, Other (1+ bilateral LE pitting edema) Skin: No breakdown, No significant lesion Neuro: Normal speech, Sensation intact Psych/Mental Status: Mental status NL, Mood NL MUSCULOSKELETAL: Osteoarthritic changes both hands VITALS/I&O VITALS/I&O: Vital Signs Date Time Temp Pulse Resp B/P (MAP) Pulse Ox O2 Delivery O2 Flow Rate FiO2 12/11/20 11:00 97.7 96 18 131/93 (106) 96 Room Air 97.7 I & O 12/10/20 12/10/20 12/11/20 15:00 23:00 07:00 Intake Total 800 ml Balance 800 ml LABS Lab: Laboratory Tests Test 12/11/20 11:54 Prothrombin Time 14.9 SEC (11.7-14.0) H Prothrombin Time INR 1.2 (0.8-1.1) H Sodium Level 134 mmol/L (136-145) L Potassium Level 4.5 mmol/L (3.5-5.1) Chloride Level 101 mmol/L (98-107) Carbon Dioxide Level 21 mmol/L (21-32) Anion Gap 12 (6-14) Blood Urea Nitrogen 40 mg/dL (8-26) H Creatinine 2.7 mg/dL (0.7-1.3) H Estimated GFR (Cockcroft-Gault) 29.9 Glucose Level 173 mg/dL (70-99) H Calcium Level 11.4 mg/dL (8.5-10.1) H Magnesium Level 1.7 mg/dL (1.8-2.4) L Thyroid Stimulating Hormone (TSH) 4.011 uIU/mL (0.358-3.74) H Laboratory Tests 12/11/20 11:54 ASSESSMENT/PLAN ASSESSMENT/PLAN 1. 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 Suspect cardiomyopathy 3. DAWN on CKD3-4: prerenal 4. Hx of renal transplant with chronic immunosuppression 5. HTN: controlled 6. DLP: LDL at 106 otherwise on goal 7. Metabolic syndrome Recommendations 1. Lasix x1.. TTE. Consult nephrology 2. Will decrease norvasc to allow room for BB 3. Baby ASA. Replace K and M as warranted. 4. Pending TTE will consider for ischemic workup in the form of stress test as an outpt given his persistent intermittent issues with dyspnea 5. Will obtain UDS DIAMOND HICKEY MD 12/11/20 2216: CARDIAC CONSULT ASSESSMENT/PLAN ASSESSMENT/PLAN Pt. seen and examined. Agree with above TRAUMA COUNSELLOR note. TTE with severe LV dysfunction. Needs diuresis and likely outpt ischemic eval and consider cath depending on stress testing as he is at high risk for BLESSING with aggressive approach. Thanks AMITA BRANCH APRN Dec 11, 2020 15:57 DIAMOND HICKEY MD Dec 11, 2020 22:16
[2020-12-11] MEDS: FUROSEMIDE 40 MG/4 ML VIAL. IVP SCH (16:14)
--- NOTE | 2020-12-11 16:32 | NUR ---
SW following for discharge planning. Spoke with RN and reviewed chart. COVID result negative. Pt on room air, cardiac diet, IV Azithromycin. SW following.
--- NOTE | 2020-12-11 16:56 | CARD ---
MR#: [id number] Date of Study: 12/11/2020 Ordering Physician: DANNY SORIA, Referring Physician: DANNY SORIA, Tech: Irasema Ryan KINSEY APPROVED REPORT EXAM: Two-dimensional and M-mode echocardiogram with Doppler and color Doppler. INDICATION Dyspnea 2D DIMENSIONS RVDd3.5 (2.9-3.5cm)Left Atrium(2D)5.0 (1.6-4.0cm) IVSd1.0 (0.7-1.1cm)Aortic Root(2D)3.2 (2.0-3.7cm) LVDd7.2 (3.9-5.9cm)LVOT Diameter2.1 (1.8-2.4cm) PWd1.0 (0.7-1.1cm)LVDs6.4 (2.5-4.0cm) FS (%) 11.9 %SV68.6 ml LVEF(%)25.0 (>50%) M-Mode DIMENSIONS LVDd7.79 (4.0-5.6cm)MV EPSS2.0 (<0.5cm) FS (%) 13 %LVDs6.80 (2.0-3.8cm) ESV(Teich)239.3 mlLVEF(%)26 (>50%) Aortic Valve AoV Peak Yoav.145.0cm/sAoV VTI24.4cm AO Peak GR.8.4mmHgLVOT Peak Yoav.118.1cm/s AO Mean GR.6mmHgAVA (VMAX)2.78cm2 ADAMA (VTI)2.90cm2 Tricuspid Valve TR P. [id number]/sRAP [id number] TR Peak Gr.[id number] Pulmonary Vein S1 Wygeessr67.1cm/sD2 Ebxprpak61.2cm/s LEFT VENTRICLE The Left Ventricle is severely dilated. There is normal left ventricular wall thickness. The Ejection Fraction is 20%. There is severe global hypokinesis of the left ventricle. Tissue Doppler imaging re veals severe left ventricular diastolic dysfunction. RIGHT VENTRICLE The right ventricle is normal size. The right ventricular systolic function is normal. ATRIA The left atrium is moderately dilated. The right atrium is moderately dilated. The interatrial septum is intact with no evidence for an atrial septal defect or patent foramen ovale as noted on 2-D or Do ppler imaging. AORTIC VALVE The aortic valve is calcified but opens well. Doppler and Color Flow revealed no significant aortic r egurgitation. There is no significant aortic valvular stenosis. MITRAL VALVE The mitral valve is calcified but opens well. Mitral annular calcification is mild. There is no evide nce of mitral valve prolapse. There is no mitral valve stenosis. Doppler and Color-flow revealed mild mitral regurgitation. TRICUSPID VALVE The tricuspid valve is normal in structure and function. Doppler and Color Flow revealed mild tricusp id regurgitation. There is moderate pulmonary hypertension. The PA pressure was estimated at 45 mmHg. There is no tricuspid valve stenosis. PULMONIC VALVE The pulmonary valve is normal in structure and function. Doppler and Color Flow revealed mild pulmoni c valvular regurgitation. There is no pulmonic valvular stenosis. GREAT VESSELS The aortic root is normal in size. The ascending aorta is normal in size. There is mild pulmonary art brandy dilatation. The IVC is dilated and collapses <50% with inspiration. PERICARDIAL EFFUSION There is a trace circumferential pericardial effusion. Critical Notification Physician Notified Date: 12/11/2020 Physician Name:ROSEY Barry Critical Value: Yes <Conclusion> The Left Ventricle is severely dilated. The Ejection Fraction is 20%. There is severe global hypokinesis of the left ventricle. Doppler and Color Flow revealed mild tricuspid regurgitation. There is moderate pulmonary hypertensio n. The PA pressure was estimated at 45 mmHg. The IVC is dilated and collapses <50% with inspiration. There is a trace circumferential pericardial effusion. Signed by : Reji Pires, Electronically Approved : 12/11/2020 16:56:00
[2020-12-11 19:00] VITALS: BP 138/89
[2020-12-11 23:57] VITALS: BP 143/99
[2020-12-12 02:50] LABS: BARBITURATES NEG (NEG); BENZODIAZEPINES NEG (NEG); CANNABINOIDS NEG (NEG); COCAINE POS (NEG); METHADONE NEG (NEG); OPIATES NEG (NEG); PHENCYCLIDINE NEG (NEG)
[2020-12-12 02:53] LABS: AMPHETAMINE/METHAMPHETAMINE NEG (NEG)
[2020-12-12 03:00] VITALS: BP 131/86
[2020-12-12 07:00] VITALS: BP 125/81
[2020-12-12] MEDS: FUROSEMIDE 40 MG/4 ML VIAL. IVP SCH (08:31)
[2020-12-12] MEDS: methylPREDNISolone SOD SUCC PF 40 MG/ML VIAL. IV SCH (08:32)
[2020-12-12] MEDS: ENOXAPARIN 40 MG/0.4 ML SYRINGE. SQ SCH (08:32)
[2020-12-12] MEDS: MYCOPHENOLATE ACID 180 MG TABLET.DR. PO SCH ×2 (08:34→21:00)
[2020-12-12] MEDS: IPRATROPIUM/ALBUTEROL 20/100mcg/INH INHALER. INH SCH ×4 (08:35→20:00)
[2020-12-12] MEDS: AZITHROMYCIN 250 MG in IV NORMAL SALINE 250ML 250 ML IV SCH (08:38)
--- NOTE | 2020-12-12 08:38 | PDOC ---
PULMONARY PROGRESS NOTES DATE: 12/12/20 TIME: 08:37 Vitals Vital Signs Date Time Temp Pulse Resp B/P (MAP) Pulse Ox O2 Delivery O2 Flow Rate FiO2 12/12/20 08:34 88 125/81 12/12/20 07:00 96.4 18 99 Room Air 96.4 General: Alert, Oriented X4 Lungs: Crackles Cardiovascular: S1, S2 Abdomen: Non-tender Extremities: No Edema Labs Laboratory Tests Test 12/10/20 12:33 12/10/20 12:34 12/10/20 14:30 12/10/20 15:07 Coronavirus (PCR) Not detected (Not Detected) White Blood Count 5.9 x10^3/uL (4.0-11.0) Red Blood Count 4.87 x10^6/uL (4.30-5.70) Hemoglobin 11.9 g/dL (13.0-17.5) Hematocrit 37.0 % (39.0-53.0) Mean Corpuscular Volume 76 fL (79-100) Mean Corpuscular Hemoglobin 24 pg (25-35) Mean Corpuscular Hemoglobin Concent 32 g/dL (31-37) Red Cell Distribution Width 18.9 % (11.5-14.5) Platelet Count 329 x10^3/uL (140-400) Neutrophils (%) (Auto) 64 % (31-73) Lymphocytes (%) (Auto) 20 % (24-48) Monocytes (%) (Auto) 9 % (0-9) Eosinophils (%) (Auto) 7 % (0-3) Basophils (%) (Auto) 0 % (0-3) Neutrophils # (Auto) 3.8 x10^3/uL (1.8-7.7) Lymphocytes # (Auto) 1.2 x10^3/uL (1.0-4.8) Monocytes # (Auto) 0.5 x10^3/uL (0.0-1.1) Eosinophils # (Auto) 0.4 x10^3/uL (0.0-0.7) Basophils # (Auto) 0.0 x10^3/uL (0.0-0.2) D-Dimer (Radha) 0.95 ug/mlFEU (0.00-0.50) Sodium Level 136 mmol/L (136-145) Potassium Level 4.0 mmol/L (3.5-5.1) Chloride Level 104 mmol/L (98-107) Carbon Dioxide Level 23 mmol/L (21-32) Anion Gap 9 (6-14) Blood Urea Nitrogen 28 mg/dL (8-26) Creatinine 2.4 mg/dL (0.7-1.3) Estimated GFR (Cockcroft-Gault) 34.3 BUN/Creatinine Ratio 12 (6-20) Glucose Level 115 mg/dL (70-99) Lactic Acid Level 0.8 mmol/L (0.4-2.0) Calcium Level 11.0 mg/dL (8.5-10.1) Total Bilirubin 0.5 mg/dL (0.2-1.0) Aspartate Amino Transf (AST/SGOT) 11 U/L (15-37) Alanine Aminotransferase (ALT/SGPT) 18 U/L (16-63) Alkaline Phosphatase 102 U/L (46-116) Troponin I Quantitative 0.040 ng/mL (0.000-0.055) IY-Pkb-X-Type Natriuretic Peptide 1909 pg/mL (0-124) Total Protein 7.4 g/dL (6.4-8.2) Albumin 2.8 g/dL (3.4-5.0) Albumin/Globulin Ratio 0.6 (1.0-1.7) O2 Saturation 97 % (92-99) Arterial Blood pH 7.44 (7.35-7.45) Arterial Blood pCO2 at Patient Temp 27 mmHg (35-46) Arterial Blood pO2 at Patient Temp 83 mmHg (75-108) Arterial Blood HCO3 18 mmol/L (21-28) Arterial Blood Base Excess -5 mmol/L (-3-3) Oxyhemoglobin 95.7 % Methemoglobin 0.4 % (0.0-1.9) Carbon Monoxide, Quantitative 0.5 % (0.0-1.9) FiO2 21 Urine Collection Type Unknown Urine Color Yellow Urine Clarity Clear Urine pH 5.5 (<5.0-8.0) Urine Specific [place] 1.015 (1.000-1.030) Urine Protein >=300 mg/dL (NEG-TRACE) Urine Glucose (UA) Negative mg/dL (NEG) Urine Ketones (Stick) Negative mg/dL (NEG) Urine Blood Trace (NEG) Urine Nitrite Negative (NEG) Urine Bilirubin Negative (NEG) Urine Urobilinogen Dipstick 0.2 mg/dL (0.2 mg/dL) Urine Leukocyte Esterase Negative (NEG) Urine RBC 3-5 /HPF (0-2) Urine WBC Rare /HPF (0-4) Urine Squamous Epithelial Cells Occ /LPF Urine Bacteria Few /HPF (0-FEW) Test 12/11/20 11:54 12/11/20 23:59 Prothrombin Time 14.9 SEC (11.7-14.0) Prothromb Time International Ratio 1.2 (0.8-1.1) Sodium Level 134 mmol/L (136-145) Potassium Level 4.5 mmol/L (3.5-5.1) Chloride Level 101 mmol/L (98-107) Carbon Dioxide Level 21 mmol/L (21-32) Anion Gap 12 (6-14) Blood Urea Nitrogen 40 mg/dL (8-26) Creatinine 2.7 mg/dL (0.7-1.3) Estimated GFR (Cockcroft-Gault) 29.9 Glucose Level 173 mg/dL (70-99) Calcium Level 11.4 mg/dL (8.5-10.1) Magnesium Level 1.7 mg/dL (1.8-2.4) Thyroid Stimulating Hormone (TSH) 4.011 uIU/mL (0.358-3.74) Urine Opiates Screen Neg (NEG) Urine Methadone Screen Neg (NEG) Urine Barbiturates Neg (NEG) Urine Phencyclidine Screen Neg (NEG) Urine Amphetamine/Methamphetamine Neg (NEG) Urine Benzodiazepines Screen Neg (NEG) Urine Cocaine Screen Pos (NEG) Urine Cannabinoids Screen Neg (NEG) Urine Ethyl Alcohol Neg (NEG) Laboratory Tests Test 12/11/20 11:54 12/11/20 23:59 Prothrombin Time 14.9 SEC (11.7-14.0) Prothromb Time International Ratio 1.2 (0.8-1.1) Sodium Level 134 mmol/L (136-145) Potassium Level 4.5 mmol/L (3.5-5.1) Chloride Level 101 mmol/L (98-107) Carbon Dioxide Level 21 mmol/L (21-32) Anion Gap 12 (6-14) Blood Urea Nitrogen 40 mg/dL (8-26) Creatinine 2.7 mg/dL (0.7-1.3) Estimated GFR (Cockcroft-Gault) 29.9 Glucose Level 173 mg/dL (70-99) Calcium Level 11.4 mg/dL (8.5-10.1) Magnesium Level 1.7 mg/dL (1.8-2.4) Thyroid Stimulating Hormone (TSH) 4.011 uIU/mL (0.358-3.74) Urine Opiates Screen Neg (NEG) Urine Methadone Screen Neg (NEG) Urine Barbiturates Neg (NEG) Urine Phencyclidine Screen Neg (NEG) Urine Amphetamine/Methamphetamine Neg (NEG) Urine Benzodiazepines Screen Neg (NEG) Urine Cocaine Screen Pos (NEG) Urine Cannabinoids Screen Neg (NEG) Urine Ethyl Alcohol Neg (NEG) Medications Active Scripts Medications Dose Route/Sig Max Daily Dose Days Date Category Mucinex (Guaifenesin) 600 Mg Tablet.er 1 Tab PO BID 10 12/11/20 Reported Myfortic (Mycophenolate Sodium) 180 Mg Tablet.dr 180 Mg PO BID 07/26/18 Reported Prograf (Tacrolimus) 1 Mg Capsule 5 Mg PO BID 05/03/14 Reported Myfortic (Mycophenolate Sodium) 360 Mg Tablet.dr 360 Mg PO BID 05/03/14 Reported Amlodipine Besylate 5 Mg Tablet 10 Mg PO DAILY 01/11/14 Reported Impression . IMPRESSION: 1. Abnormal CT chest revealing ground glass opacities throughout both lung aguilar. 2. [id number] negative on 12/10/2020 also negative back on 10/17/2020. 3. Renal failure secondary to hypertension, status post kidney transplant. 4. Kidney transplant. 5. Acute nonspecific bronchitis. 6. Possible acute alveolitis from inhalation of wood dust and sheetrock dust <Conclusion> The Left Ventricle is severely dilated. The Ejection Fraction is 20%. There is severe global hypokinesis of the left ventricle. Doppler and Color Flow revealed mild tricuspid regurgitation. There is moderate pulmonary hypertension. The PA pressure was estimated at 45 mmHg. The IVC is dilated and collapses <50% with inspiration. There is a trace circumferential pericardial effusion. Plan . 1. The patient is to undergo an echocardiogram today, we will await echo results. 2. ENJU-MINPK-0 negative. 3. Empiric steroids. 4. We will empirically treat with antibiotics for possible bacterial pneumonia. 5. Continue DVT prophylaxis. 7. P.r.n. nebulized treatments. ARELY SZYMANSKI MD Dec 12, 2020 08:38
--- NOTE | 2020-12-12 08:44 | PDOC ---
PROGRESS NOTES Date of Service: DATE: 12/12/20 TIME: 08:43 Subjective Subjective feels ok Objective Objective Vital Signs Date Time Temp Pulse Resp B/P (MAP) Pulse Ox O2 Delivery O2 Flow Rate FiO2 12/12/20 08:34 88 125/81 12/12/20 07:00 96.4 18 99 Room Air 96.4 Intake and Output 12/12/20 07:00 Intake Total 2620 ml Balance 2620 ml Intake Oral 2620 ml # Voids 1 Physical Exam Abdomen: Soft, No tenderness Heart: Regular rate (SR) Extremities: No cyanosis, Other (1+ bilateral LE pitting edema) General: Alert, Oriented X3, Cooperative, No acute distress HEENT: Atraumatic, Mucous membr. moist/pink Lungs: Other (diminished bases) MUSCULOSKELETAL: Osteoarthritic changes both hands Neuro: Normal speech, Sensation intact Psych/Mental Status: Mental status NL, Mood NL Skin: No breakdown, No significant lesion Diagnosis Problem List Problems Medical Problems: (1) Person under investigation for COVID-19 Status: Acute (2) Pneumonia Status: Acute Assessment Assessment Problems Medical Problems: (1) Person under investigation for COVID-19 Status: Acute (2) Pneumonia Status: Acute FINAL IMPRESSION:ac systolic heart failure EJF 20% 1. Persistent lung infiltrates possibility late effects of previous pneumonia. 2. Rule out heart failure. 3. Hypertension. 4. History of kidney transplant, on immunosuppressants. 5. History of dialysis with AV graft in the past. PLAN: covid -ve echo 20% ejf urine drug screen positive for cocaine ,pt admits to using cocaine weekly basis. d/c solumedrol d/c zithromax. optimize medical treatment for chf. At this time, the patient was admitted to the hospital, COVID test was pending and will have Pulmonary Critical Care see the patient, echocardiogram while he is in the hospital this time and also we will empirically treat with Zithromax, Solu-Medrol and Lovenox until cultures are available. Plan Plan of Care Problems Medical Problems: (1) Person under investigation for COVID-19 Status: Acute (2) Pneumonia Status: Acute Comment Review of Relevant I have reviewed the following items avni (where applicable) has been applied. Labs Laboratory Tests Test 12/11/20 11:54 12/11/20 23:59 Prothrombin Time 14.9 SEC (11.7-14.0) Prothromb Time International Ratio 1.2 (0.8-1.1) Sodium Level 134 mmol/L (136-145) Potassium Level 4.5 mmol/L (3.5-5.1) Chloride Level 101 mmol/L (98-107) Carbon Dioxide Level 21 mmol/L (21-32) Anion Gap 12 (6-14) Blood Urea Nitrogen 40 mg/dL (8-26) Creatinine 2.7 mg/dL (0.7-1.3) Estimated GFR (Cockcroft-Gault) 29.9 Glucose Level 173 mg/dL (70-99) Calcium Level 11.4 mg/dL (8.5-10.1) Magnesium Level 1.7 mg/dL (1.8-2.4) Thyroid Stimulating Hormone (TSH) 4.011 uIU/mL (0.358-3.74) Urine Opiates Screen Neg (NEG) Urine Methadone Screen Neg (NEG) Urine Barbiturates Neg (NEG) Urine Phencyclidine Screen Neg (NEG) Urine Amphetamine/Methamphetamine Neg (NEG) Urine Benzodiazepines Screen Neg (NEG) Urine Cocaine Screen Pos (NEG) Urine Cannabinoids Screen Neg (NEG) Urine Ethyl Alcohol Neg (NEG) Microbiology 12/10/20 Blood Culture - Preliminary, Resulted NO GROWTH AFTER 1 DAY Medications Current Medications Amlodipine Besylate (Norvasc) 10 mg DAILY PO Last administered on 12/12/20 08:34; Start 12/11/20 at 10:00 Azithromycin 250 mg/Sodium Chloride 250 ml @ 250 mls/hr Q24H IV Last administered on 12/12/20at 08:38; Start 12/11/20 at 10:00 Enoxaparin Sodium (Lovenox 40mg Syringe) 40 mg Q24H SQ Last administered on 12/12/20 08:32; Start 12/11/20 at 09:30 Furosemide (Lasix) 40 mg DAILY IVP Last administered on 12/12/20 08:31; Start 12/11/20 at 16:00 Guaifenesin (Mucinex) 600 mg BID PO Last administered on 12/12/20 08:34; Start 12/11/20 at 10:00 Magnesium Sulfate 50 ml @ 25 mls/hr 1X ONCE IV Last administered on 12/11/20at 16:14; Start 12/11/20 at 15:45; Stop 12/11/20 at 17:44; Status DC Methylprednisolone Sodium Succinate (SOLU-Medrol 40MG VIAL) 40 mg Q12HR IV Last administered on 12/12/20at 08:32; Start 12/11/20 at 10:00 Mycophenolate Sodium (Myfortic) 180 mg BID PO ; Start 12/11/20 at 10:00; Status Cancel Mycophenolate Sodium (Myfortic) 540 mg BID PO Last administered on 12/12/20at 08:34; Start 12/11/20 at 10:00 Tacrolimus (Prograf) 5 mg BID PO Last administered on 12/11/20at 21:07; Start 12/11/20 at 10:00 Vitals/I & O Vital Sign - Last 24 Hours 12/11/20 12/11/20 12/11/20 12/11/20 10:02 11:00 15:00 19:00 Temp 97.7 98.0 97.5 97.7 98.0 97.5 Pulse 93 96 90 94 Resp 18 18 18 B/P (MAP) 128/91 131/93 (106) 122/89 (100) 138/89 (105) Pulse Ox 96 96 98 O2 Delivery Room Air Room Air Room Air 12/11/20 12/12/20 12/12/20 12/12/20 23:57 03:00 07:00 08:34 Temp 97.3 97.7 96.4 97.3 97.7 96.4 Pulse 94 97 88 88 Resp 20 20 18 B/P (MAP) 143/99 (114) 131/86 (101) 125/81 (96) 125/81 Pulse Ox 97 96 99 O2 Delivery Room Air Room Air Room Air Intake and Output 12/11/20 12/11/20 12/12/20 15:00 23:00 07:00 Intake Total 900 ml 980 ml 740 ml Balance 900 ml 980 ml 740 ml Justifications for Admission Other Justification DANNY SORIA MD Dec 12, 2020 08:43
[2020-12-12] MEDS: TACROLIMUS 0.5 MG CAPSULE. PO SCH ×2 (09:06→21:00)
--- NOTE | 2020-12-12 09:44 | PDOC2 ---
CONSULT Date of Consult Date of Consult DATE: 12/12/20 TIME: 09:20 Reason for Consult Reason for Consult: DAWN on CKD Source Source: Chart review, Patient History of Present Illness Reason for Visit: Patient is a 55-year-old male with history of kidney transplant and he is on immunosuppressants. He was admitted to [facility] on 10/17 for shortness of breath, at the time, he had exposure to COVID and the patient had a CT chest, which shows infiltrates in the lung, COVID test was negative and infiltrates were suspected 2/2 CHF He was still having lot of cough with shortness of breath since discharge , he came to ER, admitted on 12/10 - no fever , x-ray shows persistent infiltrates in the lung. V/Q scan was low probability for pulmonary embolism. COVID negative .Denies F/C.No N/V/D . No Urinary complaints Drug screen positive for Cocaine Past Medical History Cardiovascular: HTN Pulmonary: Pneumonia CENTRAL NERVOUS SYSTEM: Other (No pertinent history) GI: No pertinent hx Heme/Onc: Anemia NOS, Other (chronic immunosuppression) Psych: No pertinent hx Musculoskeletal: Osteoarthritis Rheumatologic: No pertinent hx Infectious disease: No pertinent hx ENT: No pertinent hx Renal/: Chronic renal failure, Other (renal transplant) Endocrine: No pertinent hx Dermatology: No pertinent hx Past Surgical History Past Surgical History: Other (renal transplant) Family History Family History: Hypertension Social History No ALCOHOL: none Drugs: None Lives: with Family Current Problem List Problem List Problems Medical Problems: (1) Person under investigation for COVID-19 Status: Acute (2) Pneumonia Status: Acute Current Medications Current Medications Current Medications Methylprednisolone Sodium Succinate (SOLU-Medrol 125MG VIAL) 125 mg 1X ONCE IV Last administered on 12/10/20at 12:37; Start 12/10/20 at 12:15; Stop 12/10/20 at 12:16; Status DC Albuterol/ Ipratropium (Duoneb) 3 ml RTQID NEB ; Start 12/10/20 at 16:00; Stop 12/10/20 at 17:54; Status DC Azithromycin 250 ml @ 250 mls/hr 1X ONCE IV Last administered on 12/10/20at 15:56; Start 12/10/20 at 15:45; Stop 12/10/20 at 16:44; Status DC Enoxaparin Sodium (Lovenox 100mg Syringe) 100 mg 1X ONCE SQ Last administered on 12/10/20 17:25; Start 12/10/20 at 17:15; Stop 12/10/20 at 17:16; Status DC Albuterol/ Ipratropium (Combivent Respimat 20-100 Mcg) 1 puff RTQID INH Last administered on 12/12/20 08:35; Start 12/10/20 at 18:00 Amlodipine Besylate (Norvasc) 10 mg DAILY PO Last administered on 12/12/20 08:34; Start 12/11/20 at 10:00 Guaifenesin (Mucinex) 600 mg BID PO Last administered on 12/12/20 08:34; Start 12/11/20 at 10:00 Mycophenolate Sodium (Myfortic) 180 mg BID PO ; Start 12/11/20 at 10:00; Status Cancel Mycophenolate Sodium (Myfortic) 540 mg BID PO Last administered on 12/12/20 08:34; Start 12/11/20 at 10:00 Tacrolimus (Prograf) 5 mg BID PO Last administered on 12/12/20 09:06; Start 12/11/20 at 10:00 Azithromycin 250 mg/Sodium Chloride 250 ml @ 250 mls/hr Q24H IV Last administered on 12/11/20at 10:04; Start 12/11/20 at 10:00; Stop 12/12/20 at 08:44; Status DC Enoxaparin Sodium (Lovenox 40mg Syringe) 40 mg Q24H SQ Last administered on 12/12/20 08:32; Start 12/11/20 at 09:30 Methylprednisolone Sodium Succinate (SOLU-Medrol 40MG VIAL) 40 mg Q12HR IV Last administered on 12/12/20 08:32; Start 12/11/20 at 10:00; Stop 12/12/20 at 08:44; Status DC Magnesium Sulfate 50 ml @ 25 mls/hr 1X ONCE IV Last administered on 12/11/20 16:14; Start 12/11/20 at 15:45; Stop 12/11/20 at 17:44; Status DC Furosemide (Lasix) 40 mg DAILY IVP Last administered on 12/12/20 08:31; Start 12/11/20 at 16:00 Active Scripts Active Reported Mucinex (Guaifenesin) 600 Mg Tablet.er 1 Tab PO BID 10 Days Myfortic (Mycophenolate Sodium) 180 Mg Tablet.dr 180 Mg PO BID Prograf (Tacrolimus) 1 Mg Capsule 5 Mg PO BID Myfortic (Mycophenolate Sodium) 360 Mg Tablet.dr 360 Mg PO BID Amlodipine Besylate 5 Mg Tablet 10 Mg PO DAILY Allergies Allergies: Coded Allergies: No Known Drug Allergies (Unverified , 01/11/14) ROS Review of System As per HPI, rest of the ROS is negative Physical Exam Physical Exam General: Alert, Oriented X3, Cooperative, No acute distress HEENT: Atraumatic, Mucous membr. moist/pink Lungs: Other (diminished bases) Heart: Regular rate (SR) Abdomen: Soft, No tenderness Extremities: No cyanosis, Other (1+ bilateral LE pitting edema) Skin: No breakdown, No significant lesion Neuro: Normal speech, Sensation intact Psych/Mental Status: Mental status NL, Mood NL Vital Signs Vital Signs Date Time Temp Pulse Resp B/P (MAP) Pulse Ox O2 Delivery O2 Flow Rate FiO2 12/12/20 08:34 88 125/81 12/12/20 07:00 96.4 18 99 Room Air 96.4 Assessment & Plan DAWN - probably mild worsening of renal function , Cardiorenal, EF 20% Supportive care, Strict I/O (Uop not recorded currently) , Bladder scan prn , avoid nephrotoxins Renal Transplant [facility] in 2009 - Follows with Dr. Dunham as OP, seen on 11/28/2020 Continue immunosuppressants CKD stage 3 B - CAN Baseline Cr 2.2-2.6 Chronic Hypercalcemia - Persistent vick negative . Recommned r/o Sarcoidosis if not done yet . Pulm following Abnormal CT chest revealing ground glass opacities throughout both lung aguilar. 2. 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 Ejection Fraction is 20%.severe global hypokinesis of the left ventricle. Moderate pulmonary hypertension. The PA pressure was estimated at 45 mmHg. There is a trace circumferential pericardial effusion. HTN: controlled Substance abuse UDS + for Cocaine Labs Labs Laboratory Tests Test 12/10/20 12:33 12/10/20 12:34 12/10/20 14:30 12/10/20 15:07 Coronavirus (PCR) Not detected (Not Detected) White Blood Count 5.9 x10^3/uL (4.0-11.0) Red Blood Count 4.87 x10^6/uL (4.30-5.70) Hemoglobin 11.9 g/dL (13.0-17.5) Hematocrit 37.0 % (39.0-53.0) Mean Corpuscular Volume 76 fL (79-100) Mean Corpuscular Hemoglobin 24 pg (25-35) Mean Corpuscular Hemoglobin Concent 32 g/dL (31-37) Red Cell Distribution Width 18.9 % (11.5-14.5) Platelet Count 329 x10^3/uL (140-400) Neutrophils (%) (Auto) 64 % (31-73) Lymphocytes (%) (Auto) 20 % (24-48) Monocytes (%) (Auto) 9 % (0-9) Eosinophils (%) (Auto) 7 % (0-3) Basophils (%) (Auto) 0 % (0-3) Neutrophils # (Auto) 3.8 x10^3/uL (1.8-7.7) Lymphocytes # (Auto) 1.2 x10^3/uL (1.0-4.8) Monocytes # (Auto) 0.5 x10^3/uL (0.0-1.1) Eosinophils # (Auto) 0.4 x10^3/uL (0.0-0.7) Basophils # (Auto) 0.0 x10^3/uL (0.0-0.2) D-Dimer (Radha) 0.95 ug/mlFEU (0.00-0.50) Sodium Level 136 mmol/L (136-145) Potassium Level 4.0 mmol/L (3.5-5.1) Chloride Level 104 mmol/L (98-107) Carbon Dioxide Level 23 mmol/L (21-32) Anion Gap 9 (6-14) Blood Urea Nitrogen 28 mg/dL (8-26) Creatinine 2.4 mg/dL (0.7-1.3) Estimated GFR (Cockcroft-Gault) 34.3 BUN/Creatinine Ratio 12 (6-20) Glucose Level 115 mg/dL (70-99) Lactic Acid Level 0.8 mmol/L (0.4-2.0) Calcium Level 11.0 mg/dL (8.5-10.1) Total Bilirubin 0.5 mg/dL (0.2-1.0) Aspartate Amino Transf (AST/SGOT) 11 U/L (15-37) Alanine Aminotransferase (ALT/SGPT) 18 U/L (16-63) Alkaline Phosphatase 102 U/L (46-116) Troponin I Quantitative 0.040 ng/mL (0.000-0.055) MI-Phc-O-Type Natriuretic Peptide 1909 pg/mL (0-124) Total Protein 7.4 g/dL (6.4-8.2) Albumin 2.8 g/dL (3.4-5.0) Albumin/Globulin Ratio 0.6 (1.0-1.7) O2 Saturation 97 % (92-99) Arterial Blood pH 7.44 (7.35-7.45) Arterial Blood pCO2 at Patient Temp 27 mmHg (35-46) Arterial Blood pO2 at Patient Temp 83 mmHg (75-108) Arterial Blood HCO3 18 mmol/L (21-28) Arterial Blood Base Excess -5 mmol/L (-3-3) Oxyhemoglobin 95.7 % Methemoglobin 0.4 % (0.0-1.9) Carbon Monoxide, Quantitative 0.5 % (0.0-1.9) FiO2 21 Urine Collection Type Unknown Urine Color Yellow Urine Clarity Clear Urine pH 5.5 (<5.0-8.0) Urine Specific [place] 1.015 (1.000-1.030) Urine Protein >=300 mg/dL (NEG-TRACE) Urine Glucose (UA) Negative mg/dL (NEG) Urine Ketones (Stick) Negative mg/dL (NEG) Urine Blood Trace (NEG) Urine Nitrite Negative (NEG) Urine Bilirubin Negative (NEG) Urine Urobilinogen Dipstick 0.2 mg/dL (0.2 mg/dL) Urine Leukocyte Esterase Negative (NEG) Urine RBC 3-5 /HPF (0-2) Urine WBC Rare /HPF (0-4) Urine Squamous Epithelial Cells Occ /LPF Urine Bacteria Few /HPF (0-FEW) Test 12/11/20 11:54 12/11/20 23:59 Prothrombin Time 14.9 SEC (11.7-14.0) Prothromb Time International Ratio 1.2 (0.8-1.1) Sodium Level 134 mmol/L (136-145) Potassium Level 4.5 mmol/L (3.5-5.1) Chloride Level 101 mmol/L (98-107) Carbon Dioxide Level 21 mmol/L (21-32) Anion Gap 12 (6-14) Blood Urea Nitrogen 40 mg/dL (8-26) Creatinine 2.7 mg/dL (0.7-1.3) Estimated GFR (Cockcroft-Gault) 29.9 Glucose Level 173 mg/dL (70-99) Calcium Level 11.4 mg/dL (8.5-10.1) Magnesium Level 1.7 mg/dL (1.8-2.4) Thyroid Stimulating Hormone (TSH) 4.011 uIU/mL (0.358-3.74) Urine Opiates Screen Neg (NEG) Urine Methadone Screen Neg (NEG) Urine Barbiturates Neg (NEG) Urine Phencyclidine Screen Neg (NEG) Urine Amphetamine/Methamphetamine Neg (NEG) Urine Benzodiazepines Screen Neg (NEG) Urine Cocaine Screen Pos (NEG) Urine Cannabinoids Screen Neg (NEG) Urine Ethyl Alcohol Neg (NEG) Laboratory Tests Test 12/11/20 11:54 12/11/20 23:59 Prothrombin Time 14.9 SEC (11.7-14.0) Prothromb Time International Ratio 1.2 (0.8-1.1) Sodium Level 134 mmol/L (136-145) Potassium Level 4.5 mmol/L (3.5-5.1) Chloride Level 101 mmol/L (98-107) Carbon Dioxide Level 21 mmol/L (21-32) Anion Gap 12 (6-14) Blood Urea Nitrogen 40 mg/dL (8-26) Creatinine 2.7 mg/dL (0.7-1.3) Estimated GFR (Cockcroft-Gault) 29.9 Glucose Level 173 mg/dL (70-99) Calcium Level 11.4 mg/dL (8.5-10.1) Magnesium Level 1.7 mg/dL (1.8-2.4) Thyroid Stimulating Hormone (TSH) 4.011 uIU/mL (0.358-3.74) Urine Opiates Screen Neg (NEG) Urine Methadone Screen Neg (NEG) Urine Barbiturates Neg (NEG) Urine Phencyclidine Screen Neg (NEG) Urine Amphetamine/Methamphetamine Neg (NEG) Urine Benzodiazepines Screen Neg (NEG) Urine Cocaine Screen Pos (NEG) Urine Cannabinoids Screen Neg (NEG) Urine Ethyl Alcohol Neg (NEG) Review All relevant outside records, renal labs, imaging studies, telemetry/EKG's were reviewed. Images Images 2/ CxR Mild bilateral perihilar opacities, possibly edema or infection. CT chest w/o contrast 1. Extensive groundglass opacities noted lungs bilaterally favored to be infectious or inflammatory in etiology. 2. Trace right pleural effusion. CINTHIA HAMILTON MD Dec 12, 2020 09:44
--- NOTE | 2020-12-12 10:05 | PDOC ---
PULMONARY PROGRESS NOTES DATE: 12/12/20 TIME: 10:01 Subjective resting on room air, no overnight concerns no SOA, C P or cough Vitals Vital Signs Date Time Temp Pulse Resp B/P (MAP) Pulse Ox O2 Delivery O2 Flow Rate FiO2 12/12/20 08:34 88 125/81 12/12/20 08:00 Room Air 12/12/20 07:00 96.4 18 99 96.4 ROS: No Nausea, No Chest Pain, No Abdominal Pain, No Increase Cough General: Alert, Oriented X4 Lungs: Crackles Cardiovascular: S1, S2 Abdomen: Non-tender Extremities: No Edema Labs Laboratory Tests Test 12/10/20 12:33 12/10/20 12:34 12/10/20 14:30 12/10/20 15:07 Coronavirus (PCR) Not detected (Not Detected) White Blood Count 5.9 x10^3/uL (4.0-11.0) Red Blood Count 4.87 x10^6/uL (4.30-5.70) Hemoglobin 11.9 g/dL (13.0-17.5) Hematocrit 37.0 % (39.0-53.0) Mean Corpuscular Volume 76 fL (79-100) Mean Corpuscular Hemoglobin 24 pg (25-35) Mean Corpuscular Hemoglobin Concent 32 g/dL (31-37) Red Cell Distribution Width 18.9 % (11.5-14.5) Platelet Count 329 x10^3/uL (140-400) Neutrophils (%) (Auto) 64 % (31-73) Lymphocytes (%) (Auto) 20 % (24-48) Monocytes (%) (Auto) 9 % (0-9) Eosinophils (%) (Auto) 7 % (0-3) Basophils (%) (Auto) 0 % (0-3) Neutrophils # (Auto) 3.8 x10^3/uL (1.8-7.7) Lymphocytes # (Auto) 1.2 x10^3/uL (1.0-4.8) Monocytes # (Auto) 0.5 x10^3/uL (0.0-1.1) Eosinophils # (Auto) 0.4 x10^3/uL (0.0-0.7) Basophils # (Auto) 0.0 x10^3/uL (0.0-0.2) D-Dimer (Radha) 0.95 ug/mlFEU (0.00-0.50) Sodium Level 136 mmol/L (136-145) Potassium Level 4.0 mmol/L (3.5-5.1) Chloride Level 104 mmol/L (98-107) Carbon Dioxide Level 23 mmol/L (21-32) Anion Gap 9 (6-14) Blood Urea Nitrogen 28 mg/dL (8-26) Creatinine 2.4 mg/dL (0.7-1.3) Estimated GFR (Cockcroft-Gault) 34.3 BUN/Creatinine Ratio 12 (6-20) Glucose Level 115 mg/dL (70-99) Lactic Acid Level 0.8 mmol/L (0.4-2.0) Calcium Level 11.0 mg/dL (8.5-10.1) Total Bilirubin 0.5 mg/dL (0.2-1.0) Aspartate Amino Transf (AST/SGOT) 11 U/L (15-37) Alanine Aminotransferase (ALT/SGPT) 18 U/L (16-63) Alkaline Phosphatase 102 U/L (46-116) Troponin I Quantitative 0.040 ng/mL (0.000-0.055) DA-Ihs-Y-Type Natriuretic Peptide 1909 pg/mL (0-124) Total Protein 7.4 g/dL (6.4-8.2) Albumin 2.8 g/dL (3.4-5.0) Albumin/Globulin Ratio 0.6 (1.0-1.7) O2 Saturation 97 % (92-99) Arterial Blood pH 7.44 (7.35-7.45) Arterial Blood pCO2 at Patient Temp 27 mmHg (35-46) Arterial Blood pO2 at Patient Temp 83 mmHg (75-108) Arterial Blood HCO3 18 mmol/L (21-28) Arterial Blood Base Excess -5 mmol/L (-3-3) Oxyhemoglobin 95.7 % Methemoglobin 0.4 % (0.0-1.9) Carbon Monoxide, Quantitative 0.5 % (0.0-1.9) FiO2 21 Urine Collection Type Unknown Urine Color Yellow Urine Clarity Clear Urine pH 5.5 (<5.0-8.0) Urine Specific [place] 1.015 (1.000-1.030) Urine Protein >=300 mg/dL (NEG-TRACE) Urine Glucose (UA) Negative mg/dL (NEG) Urine Ketones (Stick) Negative mg/dL (NEG) Urine Blood Trace (NEG) Urine Nitrite Negative (NEG) Urine Bilirubin Negative (NEG) Urine Urobilinogen Dipstick 0.2 mg/dL (0.2 mg/dL) Urine Leukocyte Esterase Negative (NEG) Urine RBC 3-5 /HPF (0-2) Urine WBC Rare /HPF (0-4) Urine Squamous Epithelial Cells Occ /LPF Urine Bacteria Few /HPF (0-FEW) Test 12/11/20 11:54 12/11/20 23:59 Prothrombin Time 14.9 SEC (11.7-14.0) Prothromb Time International Ratio 1.2 (0.8-1.1) Sodium Level 134 mmol/L (136-145) Potassium Level 4.5 mmol/L (3.5-5.1) Chloride Level 101 mmol/L (98-107) Carbon Dioxide Level 21 mmol/L (21-32) Anion Gap 12 (6-14) Blood Urea Nitrogen 40 mg/dL (8-26) Creatinine 2.7 mg/dL (0.7-1.3) Estimated GFR (Cockcroft-Gault) 29.9 Glucose Level 173 mg/dL (70-99) Calcium Level 11.4 mg/dL (8.5-10.1) Magnesium Level 1.7 mg/dL (1.8-2.4) Thyroid Stimulating Hormone (TSH) 4.011 uIU/mL (0.358-3.74) Urine Opiates Screen Neg (NEG) Urine Methadone Screen Neg (NEG) Urine Barbiturates Neg (NEG) Urine Phencyclidine Screen Neg (NEG) Urine Amphetamine/Methamphetamine Neg (NEG) Urine Benzodiazepines Screen Neg (NEG) Urine Cocaine Screen Pos (NEG) Urine Cannabinoids Screen Neg (NEG) Urine Ethyl Alcohol Neg (NEG) Laboratory Tests Test 12/11/20 11:54 12/11/20 23:59 Prothrombin Time 14.9 SEC (11.7-14.0) Prothromb Time International Ratio 1.2 (0.8-1.1) Sodium Level 134 mmol/L (136-145) Potassium Level 4.5 mmol/L (3.5-5.1) Chloride Level 101 mmol/L (98-107) Carbon Dioxide Level 21 mmol/L (21-32) Anion Gap 12 (6-14) Blood Urea Nitrogen 40 mg/dL (8-26) Creatinine 2.7 mg/dL (0.7-1.3) Estimated GFR (Cockcroft-Gault) 29.9 Glucose Level 173 mg/dL (70-99) Calcium Level 11.4 mg/dL (8.5-10.1) Magnesium Level 1.7 mg/dL (1.8-2.4) Thyroid Stimulating Hormone (TSH) 4.011 uIU/mL (0.358-3.74) Urine Opiates Screen Neg (NEG) Urine Methadone Screen Neg (NEG) Urine Barbiturates Neg (NEG) Urine Phencyclidine Screen Neg (NEG) Urine Amphetamine/Methamphetamine Neg (NEG) Urine Benzodiazepines Screen Neg (NEG) Urine Cocaine Screen Pos (NEG) Urine Cannabinoids Screen Neg (NEG) Urine Ethyl Alcohol Neg (NEG) Medications Active Scripts Medications Dose Route/Sig Max Daily Dose Days Date Category Mucinex (Guaifenesin) 600 Mg Tablet.er 1 Tab PO BID 10 12/11/20 Reported Myfortic (Mycophenolate Sodium) 180 Mg Tablet.dr 180 Mg PO BID 07/26/18 Reported Prograf (Tacrolimus) 1 Mg Capsule 5 Mg PO BID 05/03/14 Reported Myfortic (Mycophenolate Sodium) 360 Mg Tablet.dr 360 Mg PO BID 05/03/14 Reported Amlodipine Besylate 5 Mg Tablet 10 Mg PO DAILY 01/11/14 Reported Comments ECHO <Conclusion> The Left Ventricle is severely dilated. The Ejection Fraction is 20%. There is severe global hypokinesis of the left ventricle. Doppler and Color Flow revealed mild tricuspid regurgitation. There is moderate pulmonary hypertension. The PA pressure was estimated at 45 mmHg. The IVC is dilated and collapses <50% with inspiration. There is a trace circumferential pericardial effusion. Impression . IMPRESSION: 1. Abnormal CT chest revealing ground glass opacities throughout both lung aguilar. 2. EDNF-BGVTS-6 negative on 12/10/2020 also negative back on 10/17/2020. 3. Renal failure secondary to hypertension, status post kidney transplant. 4. Kidney transplant. 5. Acute nonspecific bronchitis. 6. Possible acute alveolitis from inhalation of wood dust and sheetrock dust <Conclusion> The Left Ventricle is severely dilated. The Ejection Fraction is 20%. There is severe global hypokinesis of the left ventricle. Doppler and Color Flow revealed mild tricuspid regurgitation. There is moderate pulmonary hypertension. The PA pressure was estimated at 45 mmHg. The IVC is dilated and collapses <50% with inspiration. There is a trace circumferential pericardial effusion. Plan . Stable from pulmonary standpoint on room air OCPQ-AVBSY-0 negative. D/C steroids NEBS PRN D/C ABX Follow cardiology recs-- diruesis ECHO reviewed Follow nephrology recs Educated on importance of cessation of drug use DVT/GI PPX D/W ARELY VICK MD Dec 12, 2020 10:05
[2020-12-12 11:00] VITALS: BP 127/83
--- NOTE | 2020-12-12 11:37 | PDOC ---
ALEX BRITO EMERGENCY ROOM SPECIALIST 12/12/20 1137: CARDIO Progress Notes Date and Time Date of Service 12/12/20 Time of Evaluation 1120 Subjective Subjective: No Chest Pain, No shortness of breath, No Palpitations Vitals Vitals Vital Signs Date Time Temp Pulse Resp B/P (MAP) Pulse Ox O2 Delivery O2 Flow Rate FiO2 12/12/20 08:34 88 125/81 12/12/20 08:00 Room Air 12/12/20 07:00 96.4 18 99 96.4 Weight Weight [ ] Input and Output Intake and Output Intake and Output 12/12/20 07:00 Intake Total 2620 ml Balance 2620 ml Intake Oral 2620 ml # Voids 1 Laboratory Labs Laboratory Tests Test 12/11/20 11:54 12/11/20 23:59 Prothrombin Time 14.9 SEC (11.7-14.0) Prothromb Time International Ratio 1.2 (0.8-1.1) Sodium Level 134 mmol/L (136-145) Potassium Level 4.5 mmol/L (3.5-5.1) Chloride Level 101 mmol/L (98-107) Carbon Dioxide Level 21 mmol/L (21-32) Anion Gap 12 (6-14) Blood Urea Nitrogen 40 mg/dL (8-26) Creatinine 2.7 mg/dL (0.7-1.3) Estimated GFR (Cockcroft-Gault) 29.9 Glucose Level 173 mg/dL (70-99) Calcium Level 11.4 mg/dL (8.5-10.1) Magnesium Level 1.7 mg/dL (1.8-2.4) Thyroid Stimulating Hormone (TSH) 4.011 uIU/mL (0.358-3.74) Urine Opiates Screen Neg (NEG) Urine Methadone Screen Neg (NEG) Urine Barbiturates Neg (NEG) Urine Phencyclidine Screen Neg (NEG) Urine Amphetamine/Methamphetamine Neg (NEG) Urine Benzodiazepines Screen Neg (NEG) Urine Cocaine Screen Pos (NEG) Urine Cannabinoids Screen Neg (NEG) Urine Ethyl Alcohol Neg (NEG) Microbiology Micro Microbiology 12/10/20 Blood Culture - Preliminary, Resulted NO GROWTH AFTER 1 DAY Physical Exam HEENT: Neck Supple W Full Motion Chest: Symmetric LUNGS: Other (diminished bases) Heart: RRR Abdomen: Soft N/T Extremities: No Edema Neurology: alert, oriented, follow commands Assessment Assessment 1. Acute on chronic with combined diastolic/systolic CHF 2. Cardiomyopathy; echo with severely dilated LV with an EF of 20%. There is se fanny global hypokinesis. 3. DAWN on CKD 4. Hx of renal transplant with chronic immunosuppression 5. HTN: controlled 6. DLP: LDL at 106 7. Substance abuse; UDS + cocaine Recommendations Diuresis with monitoring of renal function; convert to oral Repeat labs Add ASA, statin Check lipids No ACEi/ARB for DAWN/CKD Discontinue amlodipine Add hydralazine, Imdur Add low-dose Toprol upon discharge Discussed/encouraged complete cessation from cocaine. Reports occasional use and verbalized discontinuation Will plan for further ischemic evaluation with stress test on an outpatient basis if patient can refrain from recreational drug use Dietary consult. Follow up in our office with Dr. Pires as scheduled. Supportive care Justicifation of Admission Dx: Justifications for Admission: Justification of Admission Dx: Yes Comments: Acute on chronic systolic CHF Cardiomyopathy DAWN on CKD Hypertension DIAMOND PIRES MD 12/12/20 1734: CARDIO Progress Notes Plan Plan Patient seen and examined. Agree with above nurse practitioner note. Continue aggressive medical therapy with supportive care. He currently does not wish to have pursue cardiac catheterization Plan for outpatient stress testing ALEX BRITO APRN Dec 12, 2020 11:37 DIAMOND PIRES MD Dec 12, 2020 17:34
[2020-12-12] MEDS: ASPIRIN ENTERIC COATED 81 MG TABLET.DR. PO SCH (11:44)
[2020-12-12] MEDS: METOPROLOL SUCC 24HR ER 25 MG TAB.ER.24H. PO SCH (11:44)
[2020-12-12 12:26] LABS: CREATININE 2.6 mg/dL (0.7-1.3); GFR 31.3; MAGNESIUM 1.9 mg/dL (1.8-2.4)
--- NOTE | 2020-12-12 13:24 | NUR ---
SW following for discharge planning. Spoke with RN and reviewed chart. Discharge plan remains home, self-care. Possible discharge tomorrow, /. No SW needs on discharge.
[2020-12-12 15:00] VITALS: BP 134/81
[2020-12-12 19:51] VITALS: BP 124/83
[2020-12-12 23:39] VITALS: BP 115/79
[2020-12-13 07:00] VITALS: BP 125/86
[2020-12-13] MEDS: ASPIRIN ENTERIC COATED 81 MG TABLET.DR. PO SCH (08:34)
[2020-12-13] MEDS: IPRATROPIUM/ALBUTEROL 20/100mcg/INH INHALER. INH SCH (08:34)
[2020-12-13] MEDS: METOPROLOL SUCC 24HR ER 25 MG TAB.ER.24H. PO SCH (08:36)
[2020-12-13 08:37] VITALS: BP 125/86
[2020-12-13] MEDS: TACROLIMUS 0.5 MG CAPSULE. PO SCH (08:38)
[2020-12-13] MEDS: MYCOPHENOLATE ACID 180 MG TABLET.DR. PO SCH (08:38)
[2020-12-13] MEDS: ENOXAPARIN 40 MG/0.4 ML SYRINGE. SQ SCH (08:53)
[2020-12-13] MEDS ORDERED: FUROSEMIDE 40 MG TABLET. PO SCH (09:00)
[2020-12-13] MEDS ORDERED: ISOSORBIDE MONONITRATE ER 30 MG TAB.ER.24H PO SCH (09:00)
[2020-12-13] MEDS ORDERED: HYDR-2869 PO (09:16)
[2020-12-13] MEDS ORDERED: METO-239 PO (09:16)
[2020-12-13] MEDS ORDERED: ASPI-886 PO (09:16)
[2020-12-13] MEDS ORDERED: ISOS30TA68 PO (09:16)
[2020-12-13] MEDS ORDERED: ATOR10TA60 PO (09:16)
[2020-12-13] MEDS ORDERED: FURO40TA4 PO (09:16)
--- NOTE | 2020-12-13 09:30 | PDOC ---
DATE OF SERVICE DATE: 12/13/20 TIME: 09:30 SUBJECTIVE ROS STABLE, NO COMPLAINTS, READY TO GO HOME OBJECTIVE Vital Signs Vital Signs Date Time Temp Pulse Resp B/P (MAP) Pulse Ox O2 Delivery O2 Flow Rate FiO2 12/13/20 08:37 85 125/86 12/13/20 07:00 96.9 20 97 Room Air 96.9 I & 0 Intake and Output 12/13/20 07:00 Intake Total 2270 ml Balance 2270 ml Intake Oral 2270 ml # Voids 6 PHYSICAL EXAM Physical Exam General: Alert, Oriented X3, Cooperative, No acute distress HEENT: Atraumatic, Mucous membr. moist/pink Lungs: Other (diminished bases) Heart: Regular rate (SR) Abdomen: Soft, No tenderness Extremities: No cyanosis, Other (1+ bilateral LE pitting edema) Skin: No breakdown, No significant lesion Neuro: Normal speech, Sensation intact Psych/Mental Status: Mental status NL, Mood NL DIAGNOSIS/ASSESSMENT Assessment & Plan DAWN - probably mild worsening of renal function , Cardiorenal, EF 20% No labs this am, dc today per primary. Pt reports has fu appt with Dr. Dunham in February Renal Transplant [facility] in 2009 - Follows with Dr. Dunham as OP, seen on 11/28/2020 Continue immunosuppressants CKD stage 3 B - CAN Baseline Cr 2.2-2.6 Chronic Hypercalcemia - Persistent vick negative . Recommned r/o Sarcoidosis if not done yet . Pulm following Abnormal CT chest revealing ground glass opacities throughout both lung aguilar. 2. 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 Ejection Fraction is 20%.severe global hypokinesis of the left ventricle. Moderate pulmonary hypertension. The PA pressure was estimated at 45 mmHg. There is a trace circumferential pericardial effusion. HTN: controlled Substance abuse UDS + for Cocaine COMMENT/RELEVANT DATA Meds Current Medications Medications (Trade) Dose Ordered Sig/Manjinder Start Time Stop Time Status Last Admin Dose Admin Albuterol/ Ipratropium (Combivent Respimat 20-100 Mcg) 1 puff RTQID 12/10/20 18:00 12/13/20 08:34 1 PUFF Albuterol/ Ipratropium (Duoneb) 3 ml RTQID 12/10/20 16:00 12/10/20 17:54 DC Amlodipine Besylate (Norvasc) 10 mg DAILY 12/11/20 10:00 12/12/20 14:27 DC 12/12/20 08:34 10 MG Aspirin (Ecotrin) 81 mg [id number] 12/12/20 12:00 12/13/20 08:34 81 MG Atorvastatin Calcium (Lipitor) 10 mg QHS 12/13/20 21:00 Azithromycin 250 ml @ 250 mls/hr 1X ONCE 12/10/20 15:45 12/10/20 16:44 DC 12/10/20 15:56 250 MLS/HR Azithromycin 250 mg/Sodium Chloride 250 ml @ 250 mls/hr Q24H 12/11/20 10:00 12/12/20 08:44 DC 12/11/20 10:04 250 MLS/HR Enoxaparin Sodium (Lovenox 100mg Syringe) 100 mg 1X ONCE 12/10/20 17:15 12/10/20 17:16 DC 12/10/20 17:25 100 MG Enoxaparin Sodium (Lovenox 40mg Syringe) 40 mg Q24H 12/11/20 09:30 12/13/20 08:53 40 MG Furosemide (Lasix) 40 mg DAILY 12/13/20 09:00 12/13/20 08:37 40 MG Guaifenesin (Mucinex) 600 mg BID 12/11/20 10:00 12/13/20 08:35 600 MG Hydralazine HCl (Apresoline) 50 mg BID 12/12/20 21:00 12/13/20 08:37 50 MG Isosorbide Mononitrate (Imdur) 30 mg DAILY 12/13/20 09:00 12/13/20 08:36 30 MG Magnesium Sulfate 50 ml @ 25 mls/hr 1X ONCE 12/11/20 15:45 12/11/20 17:44 DC 12/11/20 16:14 25 MLS/HR Methylprednisolone Sodium Succinate (SOLU-Medrol 40MG VIAL) 40 mg Q12HR 12/11/20 10:00 12/12/20 08:44 DC 12/12/20 08:32 40 MG Methylprednisolone Sodium Succinate (SOLU-Medrol 125MG VIAL) 125 mg 1X ONCE 12/10/20 12:15 12/10/20 12:16 DC 12/10/20 12:37 125 MG Metoprolol Succinate (Toprol Xl) 25 mg DAILY 12/12/20 12:00 12/13/20 08:36 25 MG Mycophenolate Sodium (Myfortic) 540 mg BID 12/11/20 10:00 12/13/20 08:38 540 MG Tacrolimus (Prograf) 5 mg BID 12/11/20 10:00 12/13/20 08:38 5 MG Lab Laboratory Tests Test 12/12/20 11:56 12/13/20 04:00 Sodium Level 134 mmol/L (136-145) Potassium Level 4.0 mmol/L (3.5-5.1) Chloride Level 100 mmol/L (98-107) Carbon Dioxide Level 20 mmol/L (21-32) Anion Gap 14 (6-14) Blood Urea Nitrogen 51 mg/dL (8-26) Creatinine 2.6 mg/dL (0.7-1.3) Estimated GFR (Cockcroft-Gault) 31.3 Glucose Level 240 mg/dL (70-99) Calcium Level 11.0 mg/dL (8.5-10.1) Magnesium Level 1.9 mg/dL (1.8-2.4) Triglycerides Level 120 mg/dL (0-150) Cholesterol Level 200 mg/dL (0-200) LDL Cholesterol, Calculated 136 mg/dL (0-100) VLDL Cholesterol, Calculated 24 mg/dL (0-40) Non-HDL Cholesterol Calculated 160 mg/dL (0-129) HDL Cholesterol 40 mg/dL (40-60) Cholesterol/HDL Ratio 5.0 Prostate Specific Antigen 2.29 ng/mL (0.00-4.00) Results All relevant outside records, renal labs, imaging studies, telemetry/EKG's were reviewed. Justicifation of Admission Dx: Justifications for Admission: Justification of Admission Dx: Yes CINTHIA HAMILTON MD Dec 13, 2020 09:30
--- NOTE | 2020-12-13 09:47 | PDOC ---
PULMONARY PROGRESS NOTES DATE: 12/13/20 TIME: 09:46 Subjective up ambulating in the room no SOA, CP or cough on room air Vitals Vital Signs Date Time Temp Pulse Resp B/P (MAP) Pulse Ox O2 Delivery O2 Flow Rate FiO2 12/13/20 08:37 85 125/86 12/13/20 08:00 Room Air 12/13/20 07:00 96.9 20 97 96.9 ROS: No Nausea, No Chest Pain, No Abdominal Pain, No Increase Cough General: Alert, Oriented X4 Lungs: Clear Cardiovascular: S1, S2 Abdomen: Non-tender Extremities: No Edema Labs Laboratory Tests Test 12/11/20 11:54 12/11/20 23:59 12/12/20 11:56 12/13/20 04:00 Prothrombin Time 14.9 SEC (11.7-14.0) Prothromb Time International Ratio 1.2 (0.8-1.1) Sodium Level 134 mmol/L (136-145) 134 mmol/L (136-145) Potassium Level 4.5 mmol/L (3.5-5.1) 4.0 mmol/L (3.5-5.1) Chloride Level 101 mmol/L (98-107) 100 mmol/L (98-107) Carbon Dioxide Level 21 mmol/L (21-32) 20 mmol/L (21-32) Anion Gap 12 (6-14) 14 (6-14) Blood Urea Nitrogen 40 mg/dL (8-26) 51 mg/dL (8-26) Creatinine 2.7 mg/dL (0.7-1.3) 2.6 mg/dL (0.7-1.3) Estimated GFR (Cockcroft-Gault) 29.9 31.3 Glucose Level 173 mg/dL (70-99) 240 mg/dL (70-99) Calcium Level 11.4 mg/dL (8.5-10.1) 11.0 mg/dL (8.5-10.1) Magnesium Level 1.7 mg/dL (1.8-2.4) 1.9 mg/dL (1.8-2.4) Thyroid Stimulating Hormone (TSH) 4.011 uIU/mL (0.358-3.74) Urine Opiates Screen Neg (NEG) Urine Methadone Screen Neg (NEG) Urine Barbiturates Neg (NEG) Urine Phencyclidine Screen Neg (NEG) Urine Amphetamine/Methamphetamine Neg (NEG) Urine Benzodiazepines Screen Neg (NEG) Urine Cocaine Screen Pos (NEG) Urine Cannabinoids Screen Neg (NEG) Urine Ethyl Alcohol Neg (NEG) Triglycerides Level 120 mg/dL (0-150) Cholesterol Level 200 mg/dL (0-200) LDL Cholesterol, Calculated 136 mg/dL (0-100) VLDL Cholesterol, Calculated 24 mg/dL (0-40) Non-HDL Cholesterol Calculated 160 mg/dL (0-129) HDL Cholesterol 40 mg/dL (40-60) Cholesterol/HDL Ratio 5.0 Prostate Specific Antigen 2.29 ng/mL (0.00-4.00) Laboratory Tests Test 12/12/20 11:56 12/13/20 04:00 Sodium Level 134 mmol/L (136-145) Potassium Level 4.0 mmol/L (3.5-5.1) Chloride Level 100 mmol/L (98-107) Carbon Dioxide Level 20 mmol/L (21-32) Anion Gap 14 (6-14) Blood Urea Nitrogen 51 mg/dL (8-26) Creatinine 2.6 mg/dL (0.7-1.3) Estimated GFR (Cockcroft-Gault) 31.3 Glucose Level 240 mg/dL (70-99) Calcium Level 11.0 mg/dL (8.5-10.1) Magnesium Level 1.9 mg/dL (1.8-2.4) Triglycerides Level 120 mg/dL (0-150) Cholesterol Level 200 mg/dL (0-200) LDL Cholesterol, Calculated 136 mg/dL (0-100) VLDL Cholesterol, Calculated 24 mg/dL (0-40) Non-HDL Cholesterol Calculated 160 mg/dL (0-129) HDL Cholesterol 40 mg/dL (40-60) Cholesterol/HDL Ratio 5.0 Prostate Specific Antigen 2.29 ng/mL (0.00-4.00) Medications Active Scripts Medications Dose Route/Sig Max Daily Dose Days Date Category Mucinex (Guaifenesin) 600 Mg Tablet.er 1 Tab PO BID 10 12/11/20 Reported Myfortic (Mycophenolate Sodium) 180 Mg Tablet. 180 Mg PO BID 07/26/18 Reported Prograf (Tacrolimus) 1 Mg Capsule 5 Mg PO BID 05/03/14 Reported Myfortic (Mycophenolate Sodium) 360 Mg Tablet. 360 Mg PO BID 05/03/14 Reported Amlodipine Besylate 5 Mg Tablet 10 Mg PO DAILY 01/11/14 Reported Comments ECHO <Conclusion> The Left Ventricle is severely dilated. The Ejection Fraction is 20%. There is severe global hypokinesis of the left ventricle. Doppler and Color Flow revealed mild tricuspid regurgitation. There is moderate pulmonary hypertension. The PA pressure was estimated at 45 mmHg. The IVC is dilated and collapses <50% with inspiration. There is a trace circumferential pericardial effusion. Impression . IMPRESSION: 1. Abnormal CT chest revealing ground glass opacities throughout both lung aguilar. 2. [id number] negative on 12/10/2020 also negative back on 10/17/2020. 3. Renal failure secondary to hypertension, status post kidney transplant. 4. Kidney transplant. 5. Acute nonspecific bronchitis. 6. Possible acute alveolitis from inhalation of wood dust and sheetrock dust <Conclusion> The Left Ventricle is severely dilated. The Ejection Fraction is 20%. There is severe global hypokinesis of the left ventricle. Doppler and Color Flow revealed mild tricuspid regurgitation. There is moderate pulmonary hypertension. The PA pressure was estimated at 45 mmHg. The IVC is dilated and collapses <50% with inspiration. There is a trace circumferential pericardial effusion. Plan . Stable from pulmonary standpoint on room air [id number] negative. NEBS PRN Follow cardiology recs-- diruesis ECHO reviewed -- EF 20% Follow nephrology recs Educated on importance of cessation of drug use DVT/GI PPX D/W RN ok to D/C home today F/U in office in 6 weeks NATHALIA GONZALEZ MD Dec 13, 2020 09:47
--- NOTE | 2020-12-13 10:34 | NUR ---
Patient discharged home with self care today via wheelchair accompanied by aid. Patient is stable, IV removed, prescriptions and discharge paperwork given to patient. Patient verbalized understanding of follow up and discharge instruction.
[2020-12-13] MEDS ORDERED: ATORVASTATIN CALCIUM 10 MG TABLET. PO SCH (21:00)
--- NOTE | 2020-12-15 11:07 | PDOC ---
Provider Note Date of Service: DATE: 12/15/20 TIME: 11:07 Provider Note Discharge summary dictated.#[id number]. Justifications for Admission Other Justification DANNY SORIA MD Dec 15, 2020 11:07
--- NOTE | 2020-12-15 11:27 | DS ---
DATE OF DISCHARGE: 12/13/2020 REASON FOR ADMISSION TO THE HOSPITAL: Shortness of breath. CONSULTATIONS: Cardiology, Dr. Pires; Dr. North and Dr. Meek. PROCEDURES DONE: Echocardiogram. HOSPITAL COURSE: The patient is a 55-year-old male patient with history of hypertension, kidney failure, was on dialysis, had AV shunt in the past, then later on, he had a kidney transplant. He is on immunosuppressants. He was admitted close to a month ago for shortness of breath at which time thought it was most of CHF, the patient supposed to get outpatient workup, but did not complete the workup. The patient again came with shortness of breath at this time and the patient had a chest x-ray shows infiltrate in the lung. Had a CT scan of the chest shows peripheral infiltrates, possible CHF. V/Q scan negative for pulmonary embolism and the patient had an echocardiogram, shows ejection fraction 20%. The patient denies using drugs initially, but urine drug screen was positive for cocaine and after that he admits that he has been doing cocaine regularly at least once a week and that would explain his congestive heart failure. The patient was recommended outpatient drug treatment for cocaine and also needs further cardiac workup including a stress test. The patient had a kidney transplant, his creatinine 2.5, is on immune suppressants and he does not really want a cardiac cath at this point because of the kidney problems. FINAL DIAGNOSES: 1. Acute congestive heart failure. 2. Cardiomyopathy with ejection fraction 20%. 3. Drug-induced cardiomyopathy, cocaine. 4. History of kidney transplant, on immunosuppressants. 5. Hypertension. DISPOSITION: Home. The patient is scheduled outpatient for a thallium stress test and see MRAD for discharge medications, optimize medical treatment and also discussed about a pacemaker defibrillator to prevent sudden cardiac . Follow up with Cardiology, follow up with the Nephrology, follow up with primary care and also outpatient drug rehab for recreational drug abuse, cocaine. DANNY SORIA MD DR: SILVIA/alicia JOB#: [id number] / [id number]
== END 2020-12-13 10:45 | disposition home or self-care (01) | DRG 291 ==
LOC: ER 11:31 → 6 SOUTH 15:38 → OBSVTOIN 12-11 13:10
PROVIDERS: ADMIT Internal Medicine; ATTEND Internal Medicine
DX: I13.0 Hypertensive heart and chronic kidney disease with heart failure and stage 1 through stage 4 chronic kidney disease, or unspecified chronic kidney disease (principal); J18.9 Pneumonia, unspecified organism; I50.43 Acute on chronic combined systolic (congestive) and diastolic (congestive) heart failure; N17.9 Acute kidney failure, unspecified; D84.9 Immunodeficiency, unspecified; N18.32 Chronic kidney disease, stage 3b; I42.9 Cardiomyopathy, unspecified; Z79.899 Other long term (current) drug therapy; J40 Bronchitis, not specified as acute or chronic; Z20.822 Contact with and (suspected) exposure to COVID-19; Z82.49 Family history of ischemic heart disease and other diseases of the circulatory system; Z87.01 Personal history of pneumonia (recurrent); E88.81 Metabolic syndrome and other insulin resistance; F14.10 Cocaine abuse, uncomplicated; M19.90 Unspecified osteoarthritis, unspecified site; E83.52 Hypercalcemia
CPT/HCPCS: 36415; 36600; 71045; 71250; 78580; 80048; 80053; 80061; 80307; 81001; 82805; 83605; 83735; 83880; 84443; 84484; 85025; 85379; 85610; 87040; 93005; 93306; 96365; 96372; 96375; 99285; A9540; G0103; G0378; G0379; J0456; J1650; J1940; J2920; J2930; J3475; J7050; J7507; U0003; J7030

== ENCOUNTER → 2021-01-24 | Outpatient (CLI) | payer MEDICARE, BC ==
[~2021-01-24] MED LIST changes: +ASPI-886 PO; +ATOR10TA60 PO; +FURO40TA4 PO; +GUAI600T47 PO; +HYDR-2869 PO; +ISOS30TA68 PO; +METO-239 PO; +REGADENOSON 0.4 MG/5 ML DISP.SYRIN. IV ONE
--- NOTE | 2021-01-24 17:58 | RAD ---
MR#: [id number] Date of Study: 01/24/2021 Ordering Physician: DIAMOND PIRES, Referring Physician: CHRISTIE SORENSEN Tech: RT Harmony (R) (N) APPROVED REPORT Test Type: Pharmacological Stress Nurse/Tech: NATALIA CLEMONS Test Indications: CARDIOMYOPATHY Cardiac History: HTN- SEE EMR Medications: SEE EMR Medical History: SEE EMR Resting ECG: SR W/PVC'S Resting Heart Rate: 81 bpm Resting Blood Pressure: 139/92mmHg Pretest Chest Pain: No chest pain Nurse/Tech Notes PT IS NERVOUS ABOUT THE TEST. VSS. S1S2, LUNGS CTA. DENIED CP OR SOA. Consent: The procedure was explained to the patient in lay terms. Informed consent was witnessed. Yunior eout was entered into [employer]. History and Stress Test performed by PATRICIA Gonzales Pharm. Details Pharmacologic stress testing was performed using 0.4mg per 5ml of regadenoson given intravenously ove r 7-10 seconds. Stress Symptoms PT BRIEFLY HAD SLIGHT SOA, VSS, ANXIOUS, DENIED CP. POST EXERCISE Reason for Termination: Infusion complete Max HR: 93 bpm Max Blood Pressure: 132/92mmHg Blood Pressure response to exercise: Normal blood pressure response during stress. Heart Rate response to exercise: NORMAL HEART RATE RESPONSE DURING STRESS Chest Pain: No. Arrhythmia: Yes. PVC'S NOTED ST Change: . ABNORMAL T WAVE NOTED IN LEADS I, AVL, V5, V6 INTERPRETATION Stress EKG Conclusion: No evidence of ischemia with stress testing. Imaging Protocol IMAGE PROTOCOL: Rest Tc-99m/stress Tc-99m 1 day Rest: Stress: Viability: Radiopharm.Tc99m [id number] Sestamibi Dose10.5mCi 33mCi Duration 15min. 10min. Img Date 01/24/2021 01/24/2021 Inj-Img [id number]. 60min. Rest Admin Site:IV - Right HandAdministrator:PATRICIA Gonzales Stress Admin Site: IV - Right HandAdministrator: PATRICIA Gonzales STRESS DATA End Diast. Vol.334.0mlAv. Heart Rate92.0bpm End Syst. Vol.237.0mlCO Index BSA9.0L/min Myocardial Ludg036.0gEject. Ewqidphz52.0% Stress Rates Pk. Fill Rate2.39EDV/secLVtime Pk. Fill 173.03msec Pk. Empty Rate1.81ESV/secLVtime Pk. Eject82.68msec /3 Pk. Fill0.55EDV/sec Stress Scores Regional WT3.00Summed WT39.00 Regional WM0.00Summed WM22.00 LV Perfusion There is a fixed mid anterior wall defect consistent with artifact. There is also a fixed basal infe rior and inferolateral defect again suggestive of artifact. Both of these defects appear to be worse on rest images rather than stress images. These defects are most likely due to motion artifact. On the other hand, these defects may also represent nonischemic cardiomyopathy based on severely reduce d ejection fraction. Wall Motion Severe LV dysfunction, EF 29% LV Perf. Quant 17 Seg. SSS10.00 17 Seg. SRS14.00 17 Seg. SDS0.00 Stress Defect Extent (% LAD)24.40Rest Defect Extent (% LAD)25.60Rev. Defect Extent (% LAD)0.60 Stress Defect Extent (% LCX) 33.80Rest Defect Extent (% LCX)51.30Rev. Defect Extent (% LCX)0.00 Stress Defect Extent (% RCA)0.00Rest Defect Extent (% RCA)14.40Rev. Defect Extent (% RCA)0.00 Stress Defect Extent (% YEE)15.70Rest Defect Extent (% YEE)25.70Rev. Defect Extent (% YEE)0.20 Other Information Quality:Fair Risk Assessment: Moderate-High Risk Conclusion 1. No evidence of stress-induced EKG changes 2. Fixed mid anterior and basal inferior and inferolateral defects suggestive of artifact versus savana schemic cardiomyopathy type pattern. 3. Severe LV dysfunction. EF 29% 4. Significant motion artifact noted 5. Moderate to high risk for future cardiovascular events Signed by : Diamond Pires, Electronically Approved : 01/24/2021 17:57:28
== END ==
LOC: NM 10:18
PROVIDERS: ATTEND Internal Medicine Cardiovascular Disease
DX: I42.9 Cardiomyopathy, unspecified (principal); I10 Essential (primary) hypertension
CPT/HCPCS: 78452; 93017; A9500

== ENCOUNTER → 2021-08-29 | Outpatient (CLI) | payer MEDICARE, BC ==
[~2021-08-29] MED LIST changes: -REGADENOSON 0.4 MG/5 ML DISP.SYRIN. IV ONE
--- NOTE | 2021-08-29 15:27 | RAD ---
3 views of the lumbar spine. 08/29/2021 INDICATION: Low back pain. COMPARISON STUDY: Lumbar spine radiographs March 11, 2018. FINDINGS: No evidence of acute fracture or alignment abnormality is identified. Vertebral body height s and disc spaces are relatively preserved. There is spondylolysis at L5 resulting in mild grade 1 an terolisthesis of L5 on S1. Associated facet arthrosis is seen. The appearance is similar to compariso n exam. IMPRESSION: 1.No radiographic evidence of acute osseous abnormality involving the lumbar spine 2. 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
== END ==
LOC: RAD 11:15
PROVIDERS: ATTEND Internal Medicine
DX: M47.817 Spondylosis without myelopathy or radiculopathy, lumbosacral region (principal); M43.07 Spondylolysis, lumbosacral region
CPT/HCPCS: 72100